=== PATIENT | female | born 1955 | race Caucasian/White ===

== ENCOUNTER 2019-02-27 10:35 | Outpatient (CLI) | payer OTHER, SELFPAY ==
[2019-02-27 12:43] LABS: Abs Immature Grans 0.01 k/cumm (0.0-0.09); Absolute Basophil Count 0.01 k/cumm (0.0-0.2); Absolute Eosinophil Count 0.08 k/cumm (0.0-0.7); Absolute Lymphocyte Count 0.96 k/cumm (1.2-3.4); Absolute Monocyte Count 0.37 k/cumm (0.11-0.7); Absolute Neutrophil Count 3.32 k/cumm (1.2-6.7); Basophils % 0.2; Eosinophils % 1.7; HCT 41.4 % (36.0-46.0); HGB 13.6 g/dL (12.0-15.5); Immature Grans % 0.2; Lymphocytes % 20.2; Mean Corp. HGB Concentration 32.9 g/dL (32.0-36.0); Mean Corpuscular Hemoglobin 29.6 pg (27.0-33.0); Mean Corpuscular Volume 90.2 fL (80-95); Mean Platelet Volume 11.6 fL (8.0-11.0); Monocytes % 7.8; Neutrophils % 69.9; Platelet Count 221 x1000/uL (130-400); RBC 4.59 m/cumm (4.00-5.20); White Blood Cell Count 4.75 k/cumm (4.4-10.8)
[2019-02-27 12:56] LABS: ALT 27 U/L (12-78); AST 13 U/L (15-37); Albumin 3.8 g/dL (3.4-5.0); Alkaline Phosphatase 88 U/L (46-116); BUN 13 mg/dL (7-18); Bilirubin, Total 0.4 mg/dL (0.2-1.0); CREATININE 0.69 mg/dL (0.55-1.02); Calcium 9.5 mg/dL (8.5-10.1); Chloride 104 mmol/L (98-107); Cholesterol 298 mg/dL (50-200); Glucose 111 mg/dL (70-100); HDL Cholesterol 44 mg/dL (40-60); LDL CHOLESTEROL 207 mg/dL (<100); Sodium 141 mmol/L (136-145); Total Protein 7.2 g/dL (6.4-8.2); Triglyceride 233 mg/dL (30-150)
== END 2019-02-27 10:55 ==
PROVIDERS: PCP Internal Medicine; Visit Provider Internal Medicine
DX: I10 Essential (primary) hypertension (principal); E78.5 Hyperlipidemia, unspecified; R50.9 Fever, unspecified
CPT/HCPCS: 36415; 80053; 80061; 83721; 85025

== ENCOUNTER 2019-04-04 13:19 | Outpatient (REF) | payer MEDICARE, OTHER, SELFPAY ==
[2019-04-04 14:09] LABS: Bilirubin Negative (Negative); Blood Negative (Negative); Clarity Clear; Glucose Negative (Negative); Ketones 15 mg/dL (Negative); Leukocyte Esterase Negative (Negative); Nitrite Negative (Negative); Specific Gravity 1.025 (1.005-1.025); Urobilinogen 0.2 EU/dL (Up TO 0.2)
== END 2019-04-04 13:39 ==
LOC: LBN 13:19
PROVIDERS: PCP Internal Medicine
DX: M54.9 Dorsalgia, unspecified (principal)
CPT/HCPCS: 81003

== ENCOUNTER 2020-05-01 12:06 | Outpatient (REF) | payer MEDICARE, OTHER, SELFPAY ==
[2020-05-01 13:29] LABS: ALT 24 U/L (14-59); AST 14 U/L (15-37); Albumin 3.8 g/dL (3.4-5.0); Alkaline Phosphatase 91 U/L (46-116); Anion Gap 11.8 mmol/L (3-11); BUN 15 mg/dL (7-18); Bilirubin, Total 0.5 mg/dL (0.2-1.0); CO2 23.2 mmol/L (21.0-32.0); Calcium 9.3 mg/dL (8.5-10.1); Chloride 103 mmol/L (98-107); Glucose 101 mg/dL (74-106); Sodium 138 mmol/L (136-145); Total Protein 6.9 g/dL (6.4-8.2)
== END 2020-05-01 12:26 ==
LOC: LBN 12:06
PROVIDERS: PCP Nurse Practitioner; Visit Provider Nurse Practitioner Family
DX: K76.89 Other specified diseases of liver (principal)
CPT/HCPCS: 80053

== ENCOUNTER 2021-02-06 02:55 | Outpatient (CLI) | payer MEDICARE, OTHER, SELFPAY ==
[2021-02-06 12:35] LABS: Hemoglobin A1C 5.7 % (<5.7)
[2021-02-06 13:02] LABS: CREATININE 0.8 mg/dL (0.55-1.02); Cholesterol 133 mg/dL (<200); Potassium 3.5 mmol/L (3.5-5.1); Triglyceride 124 mg/dL (<150)
[2021-02-06 13:13] LABS: Calculated LDL 60 mg/dL (<100); HDL Cholesterol 49 mg/dL (40-60)
== END 2021-02-06 02:56 | disposition home or self-care (01) ==
LOC: LOS 02:55
PROVIDERS: PCP Nurse Practitioner; Visit Provider Nurse Practitioner
DX: I10 Essential (primary) hypertension (principal); R73.03 Prediabetes; K76.89 Other specified diseases of liver
CPT/HCPCS: 36415; 80061; 82565; 83036; 84132

== ENCOUNTER 2021-05-18 08:28 | Emergency (ER) | payer MEDICARE, OTHER, SELFPAY ==
[2021-05-18 08:35] VITALS: BP 164/80; PULSE 91; RESP 17; TEMP 36.2; O2SAT 99
[2021-05-18 08:39] LABS: Bilirubin Negative (Negative); Blood Large (Negative); Clarity Sl Cloudy (Clear); Glucose Negative (Negative); Ketones Negative (Negative); Leukocyte Esterase Moderate (Negative); Nitrite Negative (Negative); Specific Gravity 1.015 (1.005-1.025); Urobilinogen 0.2 EU/dL (Up TO 0.2); pH 6.5 (5-8)
[2021-05-18 08:46] LABS: WBC >50 HPF (0-5)
[2021-05-18 08:47] LABS: C & S Indicated? Yes; RBC >50 HPF (0-2)
[2021-05-18 09:18] LABS: Abs Immature Grans 0.03 10^3/uL (0.0-0.06); Absolute Basophil Count 0.03 10^3/uL (0.0-0.2); Absolute Eosinophil Count 0.04 10^3/uL (0.0-0.7); Absolute Lymphocyte Count 0.91 10^3/uL (1.2-3.4); Absolute Monocyte Count 0.76 10^3/uL (0.1-0.8); Absolute Neutrophil Count 8.44 10^3/uL (1.2-6.7); Basophils % 0.3; Eosinophils % 0.4; HCT 41.6 % (36.0-46.0); HGB 13.9 g/dL (11.2-15.7); Immature Grans % 0.3; Lymphocytes % 8.9; MCH 30.3 pg (27.0-33.0); MCHC 33.4 % (32.0-36.0); MCV 90.6 fL (80-95); MPV 11.5 fL (8.0-11.0); Monocytes % 7.4; Neutrophils % 82.7; Nucleated RBC 0 %; Platelet Count 180 10^3/uL (130-400); RBC 4.59 10^6/uL (3.93-5.22); RDW 12.2 % (11.7-14.6); RDW-SD 40.1 fL; WBC 10.21 10^3/uL (4.4-10.8)
--- NOTE | 2021-05-18 09:18 | ED.GENADUL_ITS ---
Discharge Plan Disposition Patient Disposition: HOME Condition: Stable Discharge Details Clinical Impression: Hypokalemia, Loose stools, Acute UTI Primary Care Provider: Ludy Gonzalez ED Provider: Live Mcmahon Home Meds and New Rx's Prescriptions: New cephalexin 500 mg tablet 500 mg PO BID Qty: 13 RF: 0 Continued tamoxifen 20 mg tablet 20 mg PO DAILY RF: 0 aspirin 81 mg tablet,delayed release (DR/EC) 81 mg PO DAILY RF: 0 atorvastatin 40 mg tablet 40 mg PO QPM Qty: 90 RF: 3 atenolol 25 mg tablet 25 mg PO DAILY Qty: 90 RF: 3 hydrochlorothiazide 12.5 mg tablet 12.5 mg PO DAILY Qty: 90 RF: 4 Systane Gel 10 ML drops,gel 1 drp Ophthalmic BID MDD BID RF: 0 naproxen sodium [Aleve] 220 MG capsule 220 mg PO DAILY PRN RF: 0 cholecalciferol (vitamin D3) 1,000 UNIT capsule 2,000 unit PO DAILY RF: 0 Discharge Instructions Instructions: Urinary Tract Infection in Women (ED), Hypokalemia (ED) Additional Instructions: Please take full course of antibiotic as prescribed. Please follow-up with your primary care physician, call tomorrow. Return to the emerge department immediately for any worsening or new concerning symptoms. Referrals: Ludy Gonzalez, MEDICAL SECRETARY [Primary Care Provider] - Medical Decision Making 925 --66-year-old female with prior history of GERD, [place], breast cancer, here with hematuria and increased urinary frequency since incomplete emptying since last night. Patient also having intermittent and more frequent abdominal discomfort with associated loose stool over the past few months. Concern for urinary tract infection. Urinalysis reviewed and is consistent with urinary tract infection. Plan to initiate treatment with antibiotic. Regarding intermittent abdominal discomfort and loose stool times months, consider liver disease and electrolyte abnormalities. Consider infectious diarrhea. Will check labs and send stool culture. --Labs reviewed and hypokalemia noted. I will give potassium 40 mEq IV and 20 mEq p.o. and plan to recheck labs. --Plan to proceed to CT the abdomen pelvis to assess for acute surgical pathology and metastatic disease. 1332 --CT the abdomen pelvis was interpreted by radiology: Findings suspicious for cystitis, fatty liver, tiny pericardial effusion. Chronic appearing benign compression of T10. Patient currently receiving potassium. I will initiate treatment with Keflex for UTI. 1500 --repeat labs reviewed and potassium now normalized. I will discharge the patient on Keflex with plan for outpatient follow-up with PCP. Unfortunately patient was not able to provide stool specimen here. I will order outpatient so that outpatient work-up can be expedited. HPI General Mode of arrival: ambulatory . Date/Time Provider Initiated Documentation: 05/18/21 08:30 . Limitations to Documentation: no limitations . Information obtained by: patient . HPI Narrative: 66-year-old female with history of GERD, hypertension, chronic nonalcoholic liver disease, hyperlipidemia, pelvic organ prolapse, DCIS right breast, on tamoxifen, here with chief complaint of urinary symptoms. Patient notes hematuria, increased urinary frequency and sense of incomplete emptying since last night. She has mild dysuria. No associated flank pain or fever. No recent urinary tract infection over the past 12 months. Patient also notes that over the past few months she has had intermittent abdominal discomfort and associated loose stools. She states discomfort initially was every couple weeks and now seems more frequent. She recently had a loose bowel movement with undigested food. She notes decreased appetite. No recent antibiotics, travel, or undercooked/exotic food. She has no associated melena or bright red blood per rectum. No nausea or vomiting. Related Data Home Medications Medication Instructions Recorded Confirmed Systane Gel 1 drp OPHTHALMIC BID MDD BID 11/14/13 05/18/21 naproxen sodium [Aleve] 220 mg PO DAILY PRN 10/28/16 05/18/21 cholecalciferol (vitamin D3) 2,000 unit PO DAILY 01/13/17 05/18/21 atorvastatin 40 mg tablet 40 mg PO QPM #90 tab 06/04/20 05/18/21 aspirin 81 mg tablet,delayed 81 mg PO DAILY 07/12/20 05/18/21 release tamoxifen 20 mg tablet 20 mg PO DAILY 07/12/20 05/18/21 atenolol 25 mg tablet 25 mg PO DAILY #90 tab-cap 02/13/21 05/18/21 hydrochlorothiazide 12.5 mg tablet 12.5 mg PO DAILY #90 tab 02/28/21 05/18/21 cephalexin 500 mg PO BID #13 tab 05/18/21 Previous Rx's Medication Instructions Recorded atorvastatin 40 mg tablet 40 mg PO QPM #90 tab 06/04/20 atenolol 25 mg tablet 25 mg PO DAILY #90 tab-cap 02/13/21 hydrochlorothiazide 12.5 mg tablet 12.5 mg PO DAILY #90 tab 02/28/21 cephalexin 500 mg PO BID #13 tab 05/18/21 Allergies Allergy/AdvReac Type Severity Reaction Status Date / Time glycerin [From Replens] AdvReac burning & Verified 04/29/21 15:46 rash mineral oil [From Replens] AdvReac Burning & Verified 04/29/21 15:46 Rash polycarbophil [From Replens] AdvReac burning & Verified 04/29/21 15:46 RAsh General Stated Complaint: GenMedical JIMMY: 3 Review of Systems All systems reviewed & are unremarkable except as noted in HPI and below Constitutional Constitutional: Denies fever(s) Gastrointestinal Gastrointestinal: Reports as per HPI Genitourinary Genitourinary: Reports as per HPI Hematologic/Lymphatic Comments: Chronic mild swelling lower extremities bilaterally unchanged [facility] Medical History Anxiety and depression Essential hypertension 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 Hyperlipidemia [place] (nonalcoholic steatohepatitis) Phyllodes tumor of breast Tumor of breast [facility]; left breast phylloides tumor 02/2015 Surgical History Abdominal hysterectomy Bilateral salpingectomy with oophorectomy Colonoscopy - [facility] (08/11/17) Dilation and curettage EGD - [facility] (08/11/17) Endometrial Ablation History of cataract removal with insertion of prosthetic lens Family History Mother No problems noted. Father , 67 Asthma Sister Hyperlipidemia Hypertension Brother , 60 No problems noted. Son Cancer Brother , 59 Heart disease Asthma Daughter No problems noted. Daughter No problems noted. Social History Smoking/Tobacco Use Status: Never Smoking risk assessment performed?: Yes Alcohol Intake: current Alcohol Intake frequency: holidays/special occasions only Alcohol type: beer and wine Drug use: Never Substance use type: does not use Caregiver/Support person: No Household members: spouse and other Details: Ho-. uses W/C. 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 Pets and animals: No Sexually active: No Do you think of yourself as: straight/heterosexual Current gender identity: female What is your relationship status?: How often do you talk on the phone with friends or family?: decline to answer How often do you get together with friends or relatives?: decline to answer How often do you attend roman catholic or tenriism services?: decline to answer Do you belong to any clubs or organized social groups?: decline to answer Panel score (0-1 are the most socially isolated patients): 1 What type of physical activity do you participate in: decline to answer Duration: decline to answer Frequency: decline to answer Aruna/Yarsani: No preference Special aruna needs: No Seatbelt use: always Helmet use: No Drive intox or ride w/intox emergency medical technician/driver: No Do you feel safe at home: Yes Do you feel safe in your relationship?: Yes Additional Social history: 2019 Children 40yo, 38yo. Live nearby. Exam Const General: cooperative and no acute distress [facility] Head: normocephalic and atraumatic Mouth: moist mucous membranes Eyes Conjunctivae: normal conjunctivae Sclera: normal sclerae Neck Neck: trachea midline and supple Resp Auscultation: clear to auscultation bilaterally, no rales, no rhonchi and no wheezes Cardio Jugular venous pressure: no JVD Rate: regular rate and not tachycardic Rhythm: regular rhythm GI Palpation: soft, not firm, no guarding, no masses, not rigid, tender in the epigastrum, No ascites and other (fullness on palpation epigastric area) Auscultation: normal bowel sounds Skin General skin exam: no rashes or lesions noted Neuro General: patient alert, patient awake, patient oriented x3 and tone normal Extrem General: no edema Psych Appearance: grossly normal Mental Status: mental status grossly normal Course Vital Signs Vital signs: Vital Signs Temperature 36.2 C L 05/18/21 08:35 Pulse 91 H 05/18/21 08:35 Respiratory Rate 17 05/18/21 08:35 Blood Pressure 164/80 H 05/18/21 08:35 Pulse Oximetry 99 05/18/21 08:35 Temperature 36.2 C L 05/18/21 08:35 Temperature Source Temporal Artery Scan 05/18/21 08:35 Pulse 91 H 05/18/21 08:35 Respiratory Rate 17 05/18/21 08:35 Respiratory Effort Non-Labored 05/18/21 08:51 Respiratory Depth Normal 05/18/21 08:51 Respiratory Pattern Normal 05/18/21 08:51 Blood Pressure 164/80 H 05/18/21 08:35 Blood Pressure Position Sitting 05/18/21 08:35 Pulse Oximetry 99 05/18/21 08:35 Oxygen Delivery Method Room Air 05/18/21 08:35 Oxygen Flow Rate 0 05/18/21 08:35 Lab/Test Results Lab/Test Results: 05/18/21 08:30 Urine - Reflex from Ua Urine Culture - Pending Laboratory Tests Range/Units 05/18/21 08:30 Urine Color (Yellow) [place] Urine Clarity (Clear) Sl Cloudy Urine pH (5-8) 6.5 Ur Specific [place] (1.005-1.025) 1.015 Urine Protein (Negative) mg/dL 100 H Urine Ketones (Negative) mg/dL Negative Urine Blood (Negative) Large H Urine Nitrite (Negative) Negative Urine Bilirubin (Negative) Negative Urine Urobilinogen (Up TO 0.2) EU/dL 0.2 Ur Leukocyte Esterase (Negative) Moderate H Urine RBC (0-2) HPF >50 H Urine WBC (0-5) HPF >50 H Ur Epithelial Cells Not Applicable Urine Crystals Not Applicable Urine Bacteria Not Applicable Urine Mucus Not Applicable Ur Culture Indicated? Yes Urine Glucose (Negative) mg/dL Negative
[2021-05-18] MEDS: Lactated Ringers 500 ML IV (09:22)
[2021-05-18] MEDS: Normal Saline Flush 10 ML SYR IVP ×2 (09:23→11:21)
[2021-05-18 09:31] LABS: ALT 25 U/L (14-59); AST 10 U/L (15-37); Albumin 3.5 g/dL (3.4-5.0); Alkaline Phosphatase 66 U/L (46-116); BUN 10 mg/dL (7-18); Bilirubin, Total 0.7 mg/dL (0.2-1.0); CREATININE 0.8 mg/dL (0.55-1.02); Calcium 8.6 mg/dL (8.5-10.1); Chloride 104 mmol/L (98-107); Glucose 136 mg/dL (74-106); Lipase 100 U/L (73-393); Sodium 142 mmol/L (136-145); Total Protein 7.1 g/dL (6.4-8.2)
[2021-05-18 09:36] LABS: Potassium 2.7 mmol/L (3.5-5.1)
[2021-05-18] MEDS: Potassium Chloride 20 MEQ TABCR PO (09:40)
[2021-05-18] MEDS: POTASSIUM CHLORIDE 20 MEQ/100 ML BAG 50 MEQ IVPB ×2 (09:41→12:10)
[2021-05-18 09:51] VITALS: BP 142/63; PULSE 72; RESP 16; TEMP 36.1; O2SAT 98
--- NOTE | 2021-05-18 10:45 | DI.CT_ITS ---
Exam(s) CT ABDOMEN PELVIS W EXAM: CT ABDOMEN PELVIS W CLINICAL HISTORY: abd pain, diarrhea, fullness upper abd TECHNIQUE: Imaging Protocol: Axial computed tomography images with coronal and sagittal reformatted images were created and reviewed CONTRAST MATERIAL: Intravenous: Omnipaque 350 Contrast volume:100 mL Oral: No COMPARISON: No exams were available for comparison FINDINGS: ABDOMEN: Lung Bases: Normal where visualized. There is a tiny pericardial effusion. Liver: There is diffuse fatty infiltration of the liver. No measurable mass. Portal, Superior Mesenteric, and Splenic Veins: Unremarkable. Gallbladder and Biliary Tract: No radiodense calculus or dilation. Pancreas: Normal density, no abnormal calcifications or inflammatory process. Spleen: Normal. Adrenals: No masses seen. Kidneys: Normal size, contour and axis. No radiodense stones or obstructive uropathy. No masses seen. Abdominal Aorta: Abdominal portion non-dilated. Mild atherosclerosis. Bowel: No obstruction or bowel wall thickening. Appendix is unremarkable. Peritoneal Cavity: No ascites, collection or mesenteric inflammatory response. No free air. Lymph Nodes: Within normal limits. Bones: Within normal limits for the patient's age. There is an old anterior compression deformity of the T10 vertebral body. Soft Tissues: Unremarkable. PELVIS: Bladder: There is diffuse thickening of the wall of the urinary bladder. An inflammatory infectious process should be considered. Reproductive Organs: The patient is status post hysterectomy. Lymph Nodes: Within normal limits. Bones: Within normal limits for the patient's age. IMPRESSION: 1. Diffuse thickening of the wall of the urinary bladder suspicious for an inflammatory infectious cy stitis. 2. Small pericardial effusion. RADIATION DOSE DELIVERED: 936.43mGy.cm Total DLP DATA REPOSITORY: All CT scans at this facility are submitted to the National Radiology Data Registry (NRDR) Dose Index Registry (DIR) with the [employer] (ACR). RADIATION OPTIMIZATION: All CT scans at this facility use at least one of these dose optimization te chniques: automated exposure control; mA and/or kV adjustment per patient size (includes targeted exa ms where dose is matched to clinical indication); or iterative reconstruction.
[2021-05-18] MEDS: Omnipaque 350 MG/ML 100 ML BTL IV (11:20)
[2021-05-18] MEDS: Normal Saline - Diluent 50 ML VIAL IV (11:20)
[2021-05-18 11:39] VITALS: BP 138/50; PULSE 71; RESP 16; TEMP 36.1; O2SAT 98
[2021-05-18 13:05] VITALS: BP 132/57; PULSE 63; RESP 18; TEMP 36.1; O2SAT 97
--- NOTE | 2021-05-18 13:23 | DI.VRAD_ITS ---
PROCEDURE INFORMATION: Exam: CT Abdomen And Pelvis With Contrast Exam date and time: 05/18/2021 10:48 AM Age: 66 years old Clinical indication: Other: Abd pain, diarrhea, fullness upper abd TECHNIQUE: Imaging protocol: Computed tomography of the abdomen and pelvis with contrast. Radiation optimization: All CT scans at this facility use at least one of these dose optimization techniques: automated exposure control; mA and/or kV adjustment per patient size (includes targeted exams where dose is matched to clinical indication); or iterative reconstruction. Contrast material: OMNIPAQUE 350; Contrast volume: 100 ml; Contrast route: INTRAVENOUS (IV); COMPARISON: SC ABDOMEN ULTRASOUND (P) 07/27/2017 4:06 PM FINDINGS: Heart: Tiny pericardial effusion. Liver: Diffuse fatty infiltration of the liver. Gallbladder and bile ducts: Normal. No calcified stones. No ductal dilation. Pancreas: Normal. No ductal dilation. Spleen: Normal. No splenomegaly. Adrenal glands: Normal. No mass. Kidneys and ureters: Normal. No hydronephrosis. Stomach and bowel: Unremarkable. No obstruction. No mucosal thickening. Appendix: No evidence of appendicitis. Intraperitoneal space: Unremarkable. No free air. No significant fluid collection. Vasculature: Unremarkable. No abdominal aortic aneurysm. Lymph nodes: Unremarkable. No enlarged lymph nodes. Urinary bladder: Diffuse thickening of the wall the urinary bladder which is irregular and edematous, suspicious for cystitis. Reproductive: Hysterectomy. Bones/joints: The bones are demineralized. Chronic appearing benign compression of T10. Degenerative arthritis in the spine and pelvis. Soft tissues: Unremarkable. IMPRESSION: 1. Findings suspicious for cystitis 2. Fatty liver. 3. Tiny pericardial effusion. Dictated and Authenticated by: Kathia Kay MD. Ordering:FINA Mancini MD
[2021-05-18] MEDS: Cephalexin 500 MG CAP PO (13:31)
[2021-05-18 14:21] VITALS: BP 148/66; PULSE 70; RESP 14; TEMP 36.3; O2SAT 99
[2021-05-18 14:45] LABS: Anion Gap 8.2 mmol/L (3-11); BUN 8 mg/dL (7-18); CO2 28.8 mmol/L (21.0-32.0); CREATININE 0.8 mg/dL (0.55-1.02); Calcium 8.5 mg/dL (8.5-10.1); Chloride 105 mmol/L (98-107); Glucose 109 mg/dL (74-106); Potassium 3.7 mmol/L (3.5-5.1); Sodium 142 mmol/L (136-145)
[2021-05-18 15:05] VITALS: BP 114/86; PULSE 74; RESP 16; TEMP 36.5; O2SAT 98
== END 2021-05-18 15:17 | disposition home or self-care (01) ==
PROVIDERS: Physician Assistant; Emergency Provider Student in an Organized Health Care Education/Training Program; PCP Nurse Practitioner
DX: E87.6 Hypokalemia (principal); R19.7 Diarrhea, unspecified; N39.0 Urinary tract infection, site not specified; B96.89 Other specified bacterial agents as the cause of diseases classified elsewhere
CPT/HCPCS: 36415; 80048; 80053; 83690; 96361; 96365; 96366; 99285; 74177; 81003; 81015; 85025; 87086; 99284; J3480; J3490

== ENCOUNTER 2021-05-19 11:27 | Outpatient (REF) | payer MEDICARE, OTHER, SELFPAY ==
[2021-05-20 15:14] LABS: Campylobacter PCR Negative (Negative); Salmonella PCR Negative (Negative); Shiga Toxin PCR Negative (Negative); Shigella/Enteroinvasive Ecoli Negative (Negative)
== END 2021-05-19 11:28 | disposition home or self-care (01) ==
LOC: LBN 11:27
PROVIDERS: PCP Nurse Practitioner; Visit Provider Student in an Organized Health Care Education/Training Program
DX: R19.7 Diarrhea, unspecified (principal)
CPT/HCPCS: 87493; 87505

== ENCOUNTER 2021-06-05 04:04 | Outpatient (CLI) | payer MEDICARE, OTHER, SELFPAY ==
[2021-06-05 12:28] LABS: Potassium 3.5 mmol/L (3.5-5.1)
== END 2021-06-05 04:05 | disposition home or self-care (01) ==
LOC: LOS 04:04
PROVIDERS: PCP Nurse Practitioner; Visit Provider Nurse Practitioner
DX: E87.6 Hypokalemia (principal)
CPT/HCPCS: 36415; 84132

== ENCOUNTER → 2021-06-10 07:57 | Outpatient (BNVA) | payer MEDICARE, OTHER, SELFPAY | PROVIDERS: PCP Nurse Practitioner; Referring Provider Nurse Practitioner; Visit Provider Surgery | DX: K58.0 Irritable bowel syndrome with diarrhea (principal); I10 Essential (primary) hypertension; R11.0 Nausea; F41.9 Anxiety disorder, unspecified; F32.9 Major depressive disorder, single episode, unspecified | CPT/HCPCS: 99213; 99214 ==

== ENCOUNTER 2021-06-16 02:08 | Outpatient (CLI) | payer MEDICARE, OTHER, SELFPAY ==
[2021-06-16 12:59] LABS: Source Nasal/Nares
[2021-06-16 19:26] LABS: COVID-19 PCR Negative (Negative)
== END 2021-06-16 02:09 | disposition home or self-care (01) ==
LOC: LBO 02:08
PROVIDERS: PCP Nurse Practitioner; Visit Provider Surgery
DX: Z20.822 Contact with and (suspected) exposure to COVID-19 (principal); Z01.818 Encounter for other preprocedural examination
CPT/HCPCS: 87635

== ENCOUNTER 2021-06-18 08:37 | Day surgery (SDC) | payer MEDICARE, OTHER, SELFPAY ==
--- NOTE | 2021-06-18 06:55 | W.PM.ENDDOP ---
Date of service: 06/18/21 Time of Service: 11:06 Endoscopy Report DATE OF PROCEDURE: 06/18/21 PRE-OP DIAGNOSIS: Nausea POST-OP DIAGNOSIS: other (gastritis and esophagitis) PROCEDURE: EGD with biopsies SURGEON: Deann Dominguez ANESTHESIA TYPE: General:No Airway (ASA 2/ rBet Foster, ALFONSO) ESTIMATED BLOOD LOSS: 5 PATHOLOGY: other (antrum bx, GE junction bx) COMPLICATIONS: None DISPOSITION: same day INDICATIONS: The patient's biggest complaint at this time is abdominal bloating and nausea as well as loss of appetite. This has been going on for about a month. She takes Nexium on a daily basis and Carafate for about 4 5 days. The Carafate did not improve her symptoms so she stopped it. She did have an upper endoscopy in 2017 which revealed some inflammation. On exam her abdomen is soft nontender. Again wonder if this is anxiety driven but as she does have a history of gastritis and reflux we will go ahead with an upper endoscopy and biopsies just to make sure that she does not have H. pylori or ulcers. Risks, benefits and complications have been reviewed. Complications include but are not limited to bleeding, pain, perforation, sore throat, aspiration, and adverse reaction to the medications. Questions were entertained and answered to their satisfaction and they wished to proceed. No guarantees were given or implied. Proceed with EGD under sedation FINDINGS: moderate inflammation of the stomach mild inflammation of the ge junction PROCEDURE DESCRIPTION: After informed consent was obtained the patient was take to the procedure room and placed in a supine position. Monitors were applied and a time out was done. The patients name, date of , procedure type, allergies to medications and metal in their body was reviewed. A bite block was placed and the patient was sedated. Once sedated and comfortable the gastroscope was advanced through the oropharynx which was grossly normal into the esophagus. The proximal and mid-esophagus were normal. In the distal esophagus there was mild noted. The scope was advanced into the stomach and through the pylorus into the 3rd portion of the duodenum. The duodenum was noted to be normal. The scope was retracted back into the stomach. There was moderate inflammation noted and biopsies were done to rule out H. pylori. There were no ulcers. The scope was retroflexed. The cardia and fundus were noted to be normal. There was no hiatal hernia noted. The scope was retracted back into the esophagus and biopsies were done of the GE junction to rule out Herrera's. The Z line was regular. The GE junction was at 35 cm. The scope was removed and the patient was woken up and taken back to [facility] in stable condition.
--- NOTE | 2021-06-18 06:55 | W.PM.DSUDISC ---
Discharge Plan Disposition Patient Disposition: HOME Condition: Good Discharge Details Reason For Visit: EGD Attending Provider: Deann Dominguez Primary Care Provider: Ludy Gonzalez Home Meds and New Rx's Prescriptions: New esomeprazole magnesium [Nexium] 40 mg capsule,delayed release(DR/EC) 40 mg PO DAILY Qty: 30 RF: 2 sucralfate [Carafate] 1 gram tablet 1 g PO TID 14 Days Qty: 42 RF: 0 Continued tamoxifen 20 mg tablet 20 mg PO DAILY RF: 0 aspirin 81 mg tablet,delayed release (DR/EC) 81 mg PO DAILY RF: 0 atenolol 25 mg tablet 25 mg PO DAILY Qty: 90 RF: 3 hydrochlorothiazide 12.5 mg tablet 12.5 mg PO DAILY Qty: 90 RF: 4 Systane Gel 10 ML drops,gel 1 drp Ophthalmic BID MDD BID RF: 0 naproxen sodium [Aleve] 220 MG capsule 220 mg PO DAILY PRN RF: 0 cholecalciferol (vitamin D3) 1,000 UNIT capsule 2,000 unit PO DAILY RF: 0 atorvastatin 40 mg tablet 40 mg PO QPM Qty: 90 RF: 3 citalopram 10 mg tablet 10 mg PO DAILY Qty: 30 RF: 0 Discontinued esomeprazole magnesium [Nexium 24HR] 20 mg capsule,delayed release(DR/EC) 20 mg PO DAILY Qty: 30 RF: 0 Discharge Instructions Instructions: Diet for Stomach Ulcers and Gastritis (ED), Esophagitis (DC), Gastritis (DC) Additional Instructions: Findings: inflammation of stomach and esophagus Follow up: I will call with results Please call if you develop: fevers >101.5 Nausea or Vomiting Abdominal pain that is not transient Rectal bleeding that is more then a tbsp A hard abdomen and inability to pass gas DAY SURGERY UNIT POST ENDOSCOPY INSTRUCTIONS Instructions for everyone who is given Anesthesia: For your safety, please do the following for the next 24 Hours: a. Do not drive or operate dangerous equipment b. Do not drink alcohol beverages or use any recreational drugs for the first 24 hours or while taking pain medications. The medications in your body may have a reaction that can be dangerous. c. Do not make any important decisions or sign any important papers 1. Generally there are no restrictions on your activity after a day or so has gone by, but you may feel a bit fatigued for a few days. 2. After you arrive home you may have a light meal and return to a normal diet as you can tolerate it without feeling sick to your stomach. 3. After surgery, you may feel pain or discomfort. This should be only transient, but if it persists please contact your doctor. 4. If there are any questions regarding the findings of your procedure, please feel free to contact your doctor. 6. If you are unable to contact your doctor with a problem, contact the hospital at [phone]. 7. Continue all your regular medications unless directed otherwise. I understand the above instructions and have no questions. Signature of Patient or Responsible Adult Escort Date/Time Name of Responsible Adult Escort Signature of Nurse Date/Time Activity:: Activity as Tolerated Diet:: low acid Discharge Orders Discharge Orders: Discharge Order (Routine); Ordered 06/18/21 Ordered By: Deann Dominguez
[2021-06-18 08:54] VITALS: BP 170/90; PULSE 57; RESP 16; TEMP 36.3; O2SAT 98
[2021-06-18] MEDS: Lactated Ringers 1,000 ML 80 ML IV (09:14)
--- NOTE | 2021-06-18 10:34 | W.ANESPRE ---
General Info Date of Service Date Performed: 06/18/21 Height: 5 ft 4 in Weight: 73.7 kg Body Mass Index (BMI): 27.8 Surgical Procedure: Operation Date: 06/18/21 09:35 Proposed Procedures Side Surgeon p Gastroscopy Deann Dominguez MD Meds Allergies and Home Medications Allergies Allergy/AdvReac Type Severity Reaction Status Date / Time glycerin [From Replens] AdvReac burning & Verified 06/18/21 08:59 rash mineral oil [From Replens] AdvReac Burning & Verified 06/18/21 08:59 Rash polycarbophil [From Replens] AdvReac burning & Verified 06/18/21 08:59 RAsh Home Medication Medication Instructions Recorded Systane Gel 1 drp OPHTHALMIC BID MDD BID 11/14/13 naproxen sodium [Aleve] 220 mg PO DAILY PRN 10/28/16 cholecalciferol (vitamin D3) 2,000 unit PO DAILY 01/13/17 aspirin 81 mg tablet,delayed 81 mg PO DAILY 07/12/20 release tamoxifen 20 mg tablet 20 mg PO DAILY 07/12/20 atenolol 25 mg tablet 25 mg PO DAILY #90 tab-cap 02/13/21 hydrochlorothiazide 12.5 mg tablet 12.5 mg PO DAILY #90 tab 02/28/21 atorvastatin 40 mg tablet 40 mg PO QPM #90 tab 05/19/21 esomeprazole magnesium 20 mg 20 mg PO DAILY #30 cap 05/27/21 capsule,delayed release citalopram 10 mg tablet 10 mg PO DAILY #30 tab 06/11/21 Current Visit Medications: Current Medications Generic Name Dose Route Start Last Admin Trade Name Theoq PRN Reason Stop Dose Admin Hyoscyamine Sulfate 0.125 mg 06/18/21 06:56 Hyoscyamine 0.125 Mg Sl/Oral/Chew SL DIRECTED PRN Ringer's Solution 1,000 mls @ 80 mls/hr 06/18/21 06:00 06/18/21 09:14 IV 07/17/21 23:59 80 mls/hr INFUSION LU Administration IV Miscellaneous Supplies 1 each 06/18/21 06:00 Iv Access IV 07/17/21 23:59 DIRECTED LU Ondansetron HCl 4 mg 06/18/21 06:56 Ondansetron 4 Mg/2 Ml Vial IVP Q4H PRN PRN Nausea / Vomiting Sodium Chloride 0 ml 06/18/21 06:00 Normal Saline Flush 10 Ml Syr IV 07/17/21 23:59 PRN PRN Sodium Chloride 0 ml 06/18/21 06:00 Normal Saline 10 Ml Vial IJ 07/17/21 23:59 DIRECTED PRN Sterile Water 0 ml 06/18/21 06:00 Water,Injection,Sterile 10 Ml Vial IJ 07/17/21 23:59 DIRECTED PRN PFSH Active Problems Active Problems: Problem Status Onset Code Anxiety and depression 04/01/16 F41.9, F32.9 Chronic nonalcoholic liver disease 11/27/13 K76.9 Essential hypertension I10 Gastroesophageal reflux disease without esophagitis 09/20/17 K21.9 Herpes simplex type 2 infection 01/28/16 B00.9 Hyperlipidemia 11/27/13 E78.5 Increased BMI R63.8 Breast cancer 11/27/13 C50.919 Pelvic organ prolapse quantification stage 2 cystocele N81.10 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 Hyperlipidemia [place] (nonalcoholic steatohepatitis) [place]yllodes tumor of breast [place] [facility] [place]yll[place] Surgical History Surgical History (Updated 06/18/21 @ 08:59 by Taya Yoon RN) Abdominal hysterectomy Bilateral salpingectomy with oophorectomy Colonoscopy - MAC (08/11/17) Dilation and curettage EGD - MAC (08/11/17) Endometrial Ablation History of cataract removal with insertion of prosthetic lens b/l w/ lenses Tobacco Smoking/Tobacco Use Status: Never Passive smoking exposure: Yes Alcohol Alcohol Intake: current Alcohol intake frequency: holidays/special occasions only Alcohol type: beer and wine Substance Use Substance use: Never Substance use type: does not use Vital Signs and Lab Results Vital Signs Most Recent Vital Signs in EMR: Most Recent Vital Signs Temp Pulse Resp BP Pulse Ox 36.3 C L 57 L 16 170/90 H 98 06/18/21 08:54 08/25/21 08:54 06/18/21 08:54 06/18/21 08:54 06/18/21 08:54 Lab Results Blood Type / Crossmatch: No Data to Display Complete Blood Count: No Data to Display Complete Metabolic Panel: Potassium Level 3.5 mmol/L (3.5-5.1) 06/05/21 08:35 06/05/21 Liver Function Panel: No Data to Display Coagulation Panel: No Data to Display Cardiac Panel: No Data to Display Arterial Blood Gas: No Data to Display Venous Blood Gas: No Data to Display Pancreas Panel: No Data to Display Thyroid Panel: No Data to Display Infectious Disease: Coronavirus (COVID-19)(PCR) Negative (Negative) 06/16/21 09:17 06/16/21 Coronavirus 2019 Source Nasal/Nares 06/16/21 09:17 06/16/21 Blood Cultures: No Data to Display Toxicology Panel: No Data to Display Anesthesia Assessment and Plan Anesthesia History Personal History: No History of Anesthesia Complications Family History: No Family History of Anesthesia Complications Exercise Tolerance Exercise Tolerance: Metabolic Equivalents>4 Pertinent Negatives Pertinent Negatives: No Symptoms of GERD, No Major Cardiovascular Symptoms or Complaints, No Major Pulmonary Symptoms or Complaints and No History of CVA/TIA Cardiac & Pulmonary Exam Cardiac Exam: Normal S1/S2 Heart Sounds Pulmonary Exam: Clear Bilateral Breath Sounds Airway Exam Known Difficult Airway: No Mallampati Class: 2 Mouth Opening: Normal (> 3cm) Thyromental Distance: Greater than 3 cm Neck Range of Motion: Full ROM Neck Circumference: Normal Teeth Condition: Normal Dentition and Removable Dentures/Plates Upper ASA Classification ASA Score: ASA 2 Emergency Case?: No NPO Status NPO Status: NPO Clears >2 hours, Solids >8 hours Anesthesia Plan Resuscitation Status: Full Code Anesthesia Technique: General Anesthesia Airway Planned: Natural Airway Monitors Used: Standard Monitors
[2021-06-18 10:37] VITALS: BMI 27.8
--- NOTE | 2021-06-18 10:54 | STOM_PTH ---
PATIENT: Cha Alvarez LOC: [facility] U#:[id number] AGE/SX: 66/F ROOM: RE06/18/[address]: Deann Dominguez MD : 1955 BED: DIS: 06/18/2021 SPEC #: [id number] RECD: 06/18/21 12:27 STATUS: MASOUD REShanice #: [id number] HENRY: 06/18/21 10:[address]: Deann Dominguez DEPT: Surgical Specimen RECD BY: Alejandrina Slaughter ENTERED: 06/18/21 12:28 SP TYPE: STOMACH OTHR DR: Ludy Gonzalez, PhD MEDICAL RECORDS COORDINATOR Tissues: 1 - STOMACH BIOPSY 2 - ESOPHAGUS BIOPSY Procedures: GROSS AND MICRO LEVEL 4 Comments: [id number]
[2021-06-18 11:06] VITALS: BP 140/74; PULSE 59; RESP 16; TEMP 36.7; O2SAT 98
--- NOTE | 2021-06-18 11:09 | W.ANESPOSTOP ---
Postoperative Evaluation Date, Time and Location Date Performed: 06/18/21 Time Performed: 11:09 Patient Location: Day Surgery Unit Vital Signs Most Recent Imported Vital Signs: Most Recent Vital Signs Temp Pulse Resp BP Pulse Ox 36.3 C L 57 L 16 170/90 H 98 06/18/21 08:54 06/18/21 08:54 06/18/21 08:54 06/18/21 08:54 06/18/21 08:54 Most Recent Manually Entered Vital Signs: Adult Blood Pressure: 140/74 Heart Rate: 60 Respirations: 14 Oxygen Saturation (%): 98 Temperature (C): 36.3 C Pain Score (0-10 Scale): 0 Pain Score Most Recent Pain Score: Most Recent Pain Score Pain Level 0 06/18/21 08:54 Assessment Mental Status: Awake (Alert & Oriented to Patient Baseline) Airway and Respiratory Function: Patent airway with normal (patient baseline) respiratory exam Cardiovascular Function: Hemodynamically Stable Hydration Status: Adequately Hydrated Nausea & Vomiting: No Nausea or Vomiting Pain: Pt. Denies Any Pain Peripheral Nerve Block: Patient did not receive a nerve block
[2021-06-18 11:10] VITALS: BP 140/74; PULSE 60; RESP 14; TEMPC 36.3; O2SAT 98
[2021-06-18 11:31] VITALS: BP 152/68; PULSE 60; RESP 16; TEMP 36.6; O2SAT 98
== END 2021-06-18 11:37 | disposition home or self-care (01) ==
LOC: SUR 08:38
PROVIDERS: PCP Nurse Practitioner; Visit Provider Surgery
PROC: 0DJ68ZZ Inspection of Stomach, Via Natural or Artificial Opening Endoscopic (ICD-10-PCS; CPT 43235; principal; 2021-06-18 09:30)
DX: K29.70 Gastritis, unspecified, without bleeding (principal); K20.90 Esophagitis, unspecified without bleeding
CPT/HCPCS: 43239; 88305

== ENCOUNTER → 2021-07-04 08:55 | Outpatient (BNVA) | payer MEDICARE, OTHER, SELFPAY | PROVIDERS: PCP Nurse Practitioner; Referring Provider Nurse Practitioner; Visit Provider Surgery | DX: Z48.815 Encounter for surgical aftercare following surgery on the digestive system (principal); K29.00 Acute gastritis without bleeding | CPT/HCPCS: 99212 ==

== ENCOUNTER 2022-06-12 17:59 | Outpatient (REF) | payer MEDICARE, OTHER, SELFPAY ==
[2022-06-12 12:53] LABS: ESR < 1 mm/hr (0-30)
[2022-06-12 13:07] LABS: Hemoglobin A1C 5.8 % (<5.7)
[2022-06-12 13:11] LABS: Anion Gap 10.1 mmol/L (3-11); BUN 20 mg/dL (7-18); CO2 25.9 mmol/L (21.0-32.0); CREATININE 0.7 mg/dL (0.55-1.02); Calcium 8.9 mg/dL (8.5-10.1); Calculated LDL 81 mg/dL (<100); Chloride 103 mmol/L (98-107); Cholesterol 163 mg/dL (<200); Glucose 111 mg/dL (74-106); HDL Cholesterol 55 mg/dL (40-60); Potassium 4.2 mmol/L (3.5-5.1); Sodium 139 mmol/L (136-145); Triglyceride 138 mg/dL (<150)
[2022-06-12 13:24] LABS: TSH 2.73 uIU/mL (0.36-3.74); Vitamin B12 431 pg/mL (193-986)
== END 2022-06-12 18:00 | disposition home or self-care (01) ==
LOC: NCHCN 17:59
PROVIDERS: PCP Nurse Practitioner; Visit Provider Nurse Practitioner Family
DX: K76.9 Liver disease, unspecified (principal); R73.03 Prediabetes; I10 Essential (primary) hypertension; M25.50 Pain in unspecified joint; G62.9 Polyneuropathy, unspecified; Z79.899 Other long term (current) drug therapy
CPT/HCPCS: 80048; 80061; 85652; 82607; 83036; 84443

== ENCOUNTER 2023-03-19 01:45 | Outpatient (CLI) | payer MEDICARE, OTHER, SELFPAY ==
--- NOTE | 2023-03-18 15:21 | W.NUTCONSULT ---
Date of service: 03/18/23 Time of Service: 15:21 Nutritional Consult ASSESSMENT: Mona was referred for management of GI symptoms. Mona reports that about 3 months ago she started to have Gi distress (diarrhea), bloating and pain in association with meals. Historically, she has followed a low gluten and low lactose diet and reports that she has had GI issues in past that resolved when following gluten free diet. This is no longer the case. Mona reports she often eats only once per day and has severe anxiety about her health and inability to eat. Has has dropped 7 lbs in last couple months and feels drained and tired. 5'4 170 lbs BMI: 30 In last 24 hours, she has only been able to sleep 2-4 hours, and eaten a bowl of cereal and a bottle of vitamin water. If she tries to force herself to eat, she gags. She is a breast cancer survivor and is also treated for HTN and HLD. Her quality of life has been severely affected by her GI symptoms. Mona would benefit from a sleep aid to help her sleep at least 6 hours per night. This, in itself may reduce her anxiety. She was taken off an SSRI when she was started on tamoxifin a couple of years back due to into interactions. Most likely, needs to be medically treated for her anxiety with a treatment that does not interfer with tamoxifin. Does have constipation. NUTRITIONAL DIAGNOSIS: Inadequate intake of macronutrients secondary to GI upset and IBS symptoms. INTERVENTION: Mona educated on how to follow a low fod map diet to help with GI upset, to start Food and symptom log Metamucil and Magnesium oxide to aid with daily BM. Mona to follow up with PCP re: a sleep aid and anti anxiety treatment that would not interfer with tamoxifin treatment. MONITORING AND EVALUATION: follow up 03/25/23 at 2 pm. Time Spent in Nutritional Counseling and Treatment: 30
[2023-03-19 13:52] LABS: Abs Immature Grans 0.01 10^3/uL (0.0-0.06); Absolute Basophil Count 0.03 10^3/uL (0.0-0.2); Absolute Eosinophil Count 0.13 10^3/uL (0.0-0.7); Absolute Monocyte Count 0.52 10^3/uL (0.1-0.8); Absolute Neutrophil Count 3.27 10^3/uL (1.2-6.7); Basophils % 0.6; Eosinophils % 2.4; HGB 12.6 g/dL (11.2-15.7); Immature Grans % 0.2; Lymphocytes % 26.1; MCH 31.5 pg (27.0-33.0); MCHC 34.1 % (32.0-36.0); MCV 93 fL (80-95); MPV 11.9 fL (8.0-11.0); Monocytes % 9.7; Platelet Count 169 10^3/uL (130-400); RDW 12.4 % (11.7-14.6); RDW-SD 42.5 fL; WBC 5.36 10^3/uL (4.4-10.8)
[2023-03-19 14:26] LABS: ALT 27 U/L (14-59); AST 12 U/L (15-37); Albumin 3.7 g/dL (3.4-5.0); Alkaline Phosphatase 60 U/L (46-116); Anion Gap 6.2 mmol/L (3-11); BUN 20 mg/dL (7-18); Bilirubin, Total 0.7 mg/dL (0.2-1.0); CO2 29.8 mmol/L (21.0-32.0); CREATININE 1.2 mg/dL (0.55-1.02); Calcium 8.8 mg/dL (8.5-10.1); Chloride 104 mmol/L (98-107); Estimated GFR 49.31 (mL/min/1.73m2); Glucose 121 mg/dL (74-106); Lipase 43 U/L (16-77); Potassium 3.2 mmol/L (3.5-5.1); Sodium 140 mmol/L (136-145); Total Protein 6.9 g/dL (6.4-8.2)
[2023-03-19 14:28] LABS: Hemoglobin A1C 5.7 % (<5.7)
[2023-03-19 14:39] LABS: Calculated LDL 52 mg/dL (<100); Cholesterol 132 mg/dL (<200); HDL Cholesterol 52 mg/dL (40-60); Triglyceride 143 mg/dL (<150)
== END 2023-03-19 01:46 | disposition home or self-care (01) ==
LOC: LBO 01:45
PROVIDERS: PCP Nurse Practitioner Adult Health; Visit Provider Nurse Practitioner Adult Health
DX: E78.5 Hyperlipidemia, unspecified (principal); I10 Essential (primary) hypertension; K76.0 Fatty (change of) liver, not elsewhere classified; R73.03 Prediabetes; Z85.3 Personal history of malignant neoplasm of breast
CPT/HCPCS: 36415; 80053; 80061; 83690; 83036; 85025

== ENCOUNTER 2023-03-28 07:32 | Emergency (ER) | payer MEDICARE, OTHER, SELFPAY ==
[2023-03-28 07:42] VITALS: BP 141/74; PULSE 72; RESP 16; TEMP 36.9; O2SAT 99
--- NOTE | 2023-03-28 08:12 | ED.GENADUL_ITS ---
Discharge Plan Disposition Patient Disposition: Home Discharge Details Clinical Impression: Abdominal pain, Acute UTI, Dysuria Primary Care Provider: Skye Arriaga ED Provider: Linwood Santos Home Meds and New Rx's Prescriptions: New cephalexin 500 mg capsule 500 mg PO QID 5 Days Qty: 20 0RF Continued tamoxifen 20 mg tablet 20 mg PO DAILY atenolol 25 mg tablet 25 mg PO DAILY Qty: 90 4RF omeprazole 40 mg capsule,delayed release(DR/EC) 40 mg PO DAILY Qty: 30 2RF naproxen sodium [Aleve] 220 MG capsule 220 mg PO DAILY PRN cholecalciferol (vitamin D3) 1,000 UNIT capsule 2,000 unit PO DAILY Systane Gel 0.4-0.3 % drops,gel 1 drp Ophthalmic BID MDD BID PRN Rx Instructions: BOTH EYES hydrochlorothiazide 12.5 mg tablet 12.5 mg PO DAILY Qty: 90 3RF atorvastatin 40 mg tablet 40 mg PO QPM Qty: 90 3RF Discharge Instructions Instructions: Dysuria (ED) Additional Instructions: You were seen in the emergency department for abdominal pain and painful urination. We performed labs that were unremarkable but your urine testing was consistent with an infection. We gave you your first dose antibiotics here and you should start your antibiotics tomorrow. He can take [id number] Pyridium per box directions for any bladder spasm type symptoms you are having but realize this medication may turn your urine orange which is normal and expected. Take the antibiotics for the full course even if you start to feel better. You had a CAT scan of your abdomen pelvis that were unremarkable. You were incidentally found to have some sclerosis of your left hip bone which is likely benign but you should follow-up with your primary care doctor about this finding consider additional testing. Return for any worsening symptoms. Referrals: Skye Arriaga, GOVERNMENT MINISTER [Primary Care Provider] - 1 week Discharge Data Discharge Physician: Linwood Santos Medical Decision Making Labs unremarkable. Urinalysis is consistent with UTI and given 2 g of ceftriaxone here. No signs of sepsis and patient tolerating p.o. without difficulty so okay for outpatient treatment of UTI. Prescription sent for antibiotics. CT abdomen pelvis is unremarkable and consistent with UTI. Incidentally found bone island and I informed patient of this on her left iliac acetabular margin and told to follow-up with her doctor and she expresses understanding. She otherwise feels well. Will discharge with return precautions. Medical Records Medical records reviewed: Yes I reviewed the patient's medical records. Imaging Data Radiologic Study: Attestation: I personally reviewed and interpreted this imaging study as follows: Imaging: CT Scan (abdomen and pelvis) Radiologist's impression: IMPRESSION: 1. ? No radiopaque obstructive urinary calculus or overt hydronephrosis is appreciated. There is however some subtle hydroureter along with stranding of both ureteral margins left more so than right. In addition there is overall incomplete distention of the bladder as well as bladder wall thickening and perivesicular stranding. This could be seen with processes including previous passed or non radiopaque calculi although the appearance is more suggestive of overall cystitis and urinary tract inflammation. Consider urinalysis as well as cystoscopy given the persistence. 2. ? There is a focal area of sclerosis about the left iliac acetabular margin which could represent bone island although does appears slightly larger in the interval. Consider nuclear bone scan. Lab Data Lab results reviewed: Yes I reviewed the patient's lab results. Labs: Labs grossly unremarkable. Patient does have urinalysis consistent with UTI. Urine culture added on. HPI General Mode of arrival: ambulatory . Date/Time Provider Initiated Documentation: 03/28/23 08:03 . Limitations to Documentation: no limitations . Information obtained by: patient . HPI Narrative: 68-year-old female with history of breast cancer in remission is now presenting with urinary symptoms. For the last 2 days has had urinary urgency and frequency. Says that she has some burning on urination. No fevers or chills. No abdominal pain. Nausea but no vomiting. No diarrhea or constipation or any black or bloody stools. Denies any other complaints presently. Related Data Home Medications Medication Instructions Recorded Confirmed naproxen sodium 220 mg capsule 220 mg PO DAILY PRN 10/28/16 03/28/23 (Aleve) cholecalciferol (vitamin D3) 25 2,000 unit PO DAILY 01/13/17 03/28/23 mcg (1,000 unit) capsule tamoxifen 20 mg tablet 20 mg PO DAILY 07/12/20 03/28/23 omeprazole 40 mg capsule,delayed 40 mg PO DAILY #30 caps 06/20/21 03/28/23 release peg 400-propylene glycol 0.4 %-0.3 1 drp ophthalmic (eye) BID PRN 06/26/21 03/28/23 % eye gel drops (Systane Gel) atorvastatin 40 mg tablet 40 mg PO QPM #90 tabs 05/19/22 03/28/23 hydrochlorothiazide 12.5 mg tablet 12.5 mg PO DAILY #90 tabs 05/19/22 03/28/23 atenolol 25 mg tablet 25 mg PO DAILY #90 tab-caps 09/02/22 03/28/23 cephalexin 500 mg capsule 500 mg PO QID 5 days #20 caps 03/28/23 Previous Rx's Medication Instructions Recorded omeprazole 40 mg capsule,delayed 40 mg PO DAILY #30 caps 06/20/21 release atorvastatin 40 mg tablet 40 mg PO QPM #90 tabs 05/19/22 hydrochlorothiazide 12.5 mg tablet 12.5 mg PO DAILY #90 tabs 05/19/22 atenolol 25 mg tablet 25 mg PO DAILY #90 tab-caps 09/02/22 cephalexin 500 mg capsule 500 mg PO QID 5 days #20 caps 03/28/23 Allergies Allergy/AdvReac Type Severity Reaction Status Date / Time glycerin [From Replens] AdvReac burning & Verified 03/28/23 07:46 rash mineral oil [From Replens] AdvReac Burning & Verified 03/28/23 07:46 Rash polycarbophil [From Replens] AdvReac burning & Verified 03/28/23 07:46 RAsh General Stated Complaint: Urinary JIMMY: 4 Review of Systems Constitutional Constitutional: Denies chills, Denies fever(s) and Denies headache(s) Eyes Eyes: Denies change in vision ENT Ears, Nose, Mouth, and Throat: Denies headache(s) and Denies odynophagia Cardiovascular Cardiovascular: Denies chest pain and Denies dyspnea Respiratory Respiratory: Denies dyspnea Gastrointestinal Gastrointestinal: Denies abdominal pain, Denies diarrhea, Denies nausea, Denies odynophagia and Denies vomiting Genitourinary Genitourinary: Denies abnormal vaginal bleeding, Reports dysuria, Denies pelvic pain, Reports urinary urgency and Denies vaginal discharge Musculoskeletal Musculoskeletal: Denies myalgias Integumentary/Breasts Skin/Breast: Denies changing lesions Neurologic Neurologic: Denies behavioral changes and Denies headache(s) Psychiatric Psychiatric: Denies behavioral changes Endocrine Endocrine: Denies heat intolerance Hematologic/Lymphatic Hematologic/Lymphatic: Denies lymphadenopathy PFSH All Active Problems (Updated 03/28/23 @ 11:29 by Linwood Santos MD) Abdominal pain (Acute) Acute UTI (Acute) Dysuria (Acute) Shingles outbreak (Acute) History of cancer of right breast (Acute) 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; 2020: DCIS Obesity (Chronic) Nonalcoholic fatty liver disease without nonalcoholic steatohepatitis ([place]) (Acute) Non-celiac gluten sensitivity (Acute) Essential hypertension (Acute) Gastroesophageal reflux disease without esophagitis (Acute 09/20/17) Hyperlipidemia (Acute 11/27/13) Pelvic organ prolapse quantification stage 2 cystocele (Chronic) Pessary trialed in 03/2022 but did not tolerate Prediabetes (Acute) IBS (irritable bowel syndrome) (Chronic ~2016) 06/2021-Improved with gluten-free diet Medical History Anxiety and depression (04/01/16) Ductal carcinoma in [place]IS) [place]~04/22/20[place] [facility] 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 [place] phylloides [place] Surgical History Bilateral salpingectomy with oophorectomy Colonoscopy - MAC (08/11/17) Dilation and curettage EGD - MAC (08/11/17) Endometrial Ablation History of cataract removal with insertion of prosthetic lens b/l w/ lenses History of esophagogastroduodenoscopy (EGD) (~05/2021) S/P breast lumpectomy (~09/1997) [place] [facility] [place] post [place]rectomy Family History Mother No problems noted. Father , 67 Asthma Sister Hyperlipidemia Hypertension Hypothyroid Brother , 60 No problems noted. Son Cancer Brother , 59 Heart disease Asthma Daughter No problems noted. Daughter No problems noted. 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 [email or web address] Pets and animals: No Sexually active: No Do you think of yourself as: straight/heterosexual Current gender identity: female What is your relationship status?: How often do you talk on the phone with friends or family?: three or more times per week How often do you get together with friends or relatives?: twice per week Do you belong to any clubs or organized social groups?: no Panel score (0-1 are the most socially isolated patients): 2 What type of physical activity do you participate in: walking Duration: < 15 minutes/day Frequency: daily Aruna/Jainism: None Special aruna needs: No Seatbelt use: always Helmet use: No Drive intox or ride w/intox subway train driver: No Do you feel safe at home: Yes Do you feel safe in your relationship?: Yes Exam Const General: cooperative Nutritional Appearance: average body habitus Orientation: alert, awake and oriented x3 HENMT Head: normal to inspection Ears: external ears normal Mouth: moist mucous membranes Eyes Pupils: PERRL EOM: EOM intact bilaterally and No nystagmus Neck Neck: full ROM and no tracheal deviation Chest Chest: normal inspection of the chest Resp Auscultation: clear to auscultation bilaterally Cardio Rate: regular rate Rhythm: regular rhythm GI Inspection: normal to inspection Palpation: soft, no guarding, not rigid and nontender Back/Spine/Pelvis Back: No no CVA tenderness Thoracic/Lumbar Spine: thoracic and lumbar spine normal to inspection Skin General skin exam: no rashes or lesions noted Neuro General: patient alert, patient awake and patient oriented x3 Cranial Nerves: CN's II-XI intact bilaterally, PERRL and no nystagmus Cognition: normal cognition Motor: muscle tone normal throughout and strength 5/5 throughout Sensory Exam: no sensory deficits noted Extrem General: normal to inspection Course Reevaluation(s) Initial Evaluation: 68-year-old female with history of breast cancer in remission, hypertension, hyperlipidemia is now presenting with urinary symptoms. Suspect this represents cystitis. Will get urinalysis to further evaluate. Given her age we will check a CBC to look for anemia or any neutropenia or significant leukocytosis. We will check comprehensive metabolic panel primarily to look for severe electrolyte derangements or any signs of renal dysfunction. No abdominal pain or tenderness to suggest intra-abdominal abscess at this time. Has 1 partner for many years and not sexually active so no concerns for STIs. We will give some IV fluids as she says she is having trouble giving a urine sample. Will await initial testing and reevaluate. Vital Signs Vital signs: Vital Signs Temperature 36.9 C 03/28/23 07:42 Pulse 72 03/28/23 07:42 Respiratory Rate 16 03/28/23 07:42 Blood Pressure 141/74 H 03/28/23 07:42 Pulse Oximetry 99 03/28/23 07:42 Temperature 36.9 C 03/28/23 07:42 Temperature Source Oral 03/28/23 07:42 Pulse 72 03/28/23 07:42 Respiratory Rate 16 03/28/23 07:42 Blood Pressure 141/74 H 03/28/23 07:42 Blood Pressure Position Sitting 03/28/23 07:42 Pulse Oximetry 99 03/28/23 07:42 Oxygen Delivery Method Room Air 03/28/23 07:42 Oxygen Flow Rate 0 03/28/23 07:42
[2023-03-28] MEDS: Normal Saline 1,000 ML 1000 ML IV (08:46)
[2023-03-28 08:52] LABS: ALT 24 U/L (14-59); AST 16 U/L (15-37); Albumin 3.5 g/dL (3.4-5.0); Alkaline Phosphatase 63 U/L (46-116); Anion Gap 8.6 mmol/L (3-11); BUN 17 mg/dL (7-18); Bilirubin, Total 0.7 mg/dL (0.2-1.0); CO2 27.4 mmol/L (21.0-32.0); CREATININE 1.2 mg/dL (0.55-1.02); Calcium 8.5 mg/dL (8.5-10.1); Chloride 102 mmol/L (98-107); Glucose 129 mg/dL (74-106); Potassium 3.2 mmol/L (3.5-5.1); Sodium 138 mmol/L (136-145); Total Protein 7.2 g/dL (6.4-8.2)
[2023-03-28 09:00] LABS: Abs Immature Grans 0.04 10^3/uL (0.0-0.06); Absolute Basophil Count 0.03 10^3/uL (0.0-0.2); Absolute Lymphocyte Count 0.89 10^3/uL (1.2-3.4); Absolute Monocyte Count 0.81 10^3/uL (0.1-0.8); Absolute Neutrophil Count 8.94 10^3/uL (1.2-6.7); Basophils % 0.3; Eosinophils % 0.9; HCT 36.5 % (36.0-46.0); HGB 12.5 g/dL (11.2-15.7); Immature Grans % 0.4; Lymphocytes % 8.2; MCH 31.2 pg (27.0-33.0); MCHC 34.2 % (32.0-36.0); MCV 91 fL (80-95); MPV 11.8 fL (8.0-11.0); Monocytes % 7.5; Neutrophils % 82.7; Platelet Count 156 10^3/uL (130-400); RBC 4.01 10^6/uL (3.93-5.22); RDW 12.2 % (11.7-14.6); RDW-SD 40.4 fL; WBC 10.81 10^3/uL (4.4-10.8)
--- NOTE | 2023-03-28 09:30 | DI.CT_ITS ---
Exam(s) CT ABDOMEN PELVIS W EXAM: CT ABDOMEN PELVIS W CLINICAL HISTORY: llq abdominal pain TECHNIQUE: Imaging Protocol: Axial computed tomography images with coronal and sagittal reformatted images were created and reviewed CONTRAST MATERIAL: Intravenous: Omnipaque 350 Contrast volume:100 mL Oral: No COMPARISON: CT CT ABDOMEN PELVIS W from 05/18/2021 FINDINGS: ABDOMEN: Lung Bases: There is a small stable pericardial effusion. Small hiatal hernia. Liver: Normal density. No measurable mass. Portal, Superior Mesenteric, and Splenic Veins: Unremarkable. Gallbladder and Biliary Tract: No radiodense calculus or dilation. Pancreas: Normal density, no abnormal calcifications or inflammatory process. Spleen: Normal. Adrenals: No masses seen. Kidneys: Normal size, contour and axis. No radiodense stones or obstructive uropathy. No masses seen. Abdominal Aorta: Abdominal portion non-dilated. Atherosclerosis. Bowel: No obstruction or bowel wall thickening. Appendix is unremarkable. There are few diverticula i n the colon but no evidence of acute diverticulitis. Peritoneal Cavity: No ascites, collection or mesenteric inflammatory response. No free air. Lymph Nodes: Within normal limits. Bones: Within normal limits for the patient's age. There is a stable T10 compression deformity. Soft Tissues: Unremarkable. PELVIS: Bladder: There is diffuse thickening of the wall and mild enhancement in the urinary bladder. Reproductive Organs: Status post hysterectomy. Lymph Nodes: Within normal limits. Bones: Within normal limits for the patient's age. There is a round sclerotic focus in the left acet abulum which has shown slight increase in size compared to the prior examination. No other suspiciou s sclerotic foci are seen. IMPRESSION: 1. There is thickening of the wall and mild enhancement of the urinary bladder. The bladder is under distended which may account for the findings however infectious or inflammatory cystitis should be co nsidered. Please correlate clinically. 2. Slight increased size of round sclerotic focus in the left acetabulum. This may represent a bone island. Bone scan may be considered for further evaluation. RADIATION DOSE DELIVERED: 1,106.09mGy.cm Total DLP DATA REPOSITORY: All CT scans at this facility are submitted to the National Radiology Data Registry (NRDR) Dose Index Registry (DIR) with the [employer] (ACR). RADIATION OPTIMIZATION: All CT scans at this facility use at least one of these dose optimization te chniques: automated exposure control; mA and/or kV adjustment per patient size (includes targeted exa ms where dose is matched to clinical indication); or iterative reconstruction.
[2023-03-28 09:57] LABS: Bilirubin Negative (Negative); Blood Large (Negative); Clarity Sl Cloudy (Clear); Glucose Negative (Negative); Ketones Negative (Negative); Leukocyte Esterase Moderate (Negative); Nitrite Negative (Negative); Urobilinogen 0.2 mg/dL (Up to 0.2); pH 5.5 (5-8)
[2023-03-28] MEDS: Normal Saline - Diluent 50 ML VIAL IJ (09:57)
[2023-03-28] MEDS: Omnipaque 350 MG/ML 100 ML BTL IJ (09:57)
[2023-03-28] MEDS: Normal Saline Flush 10 ML SYR IVP (09:58)
[2023-03-28 10:07] LABS: Bacteria Moderate HPF (Negative); C & S Indicated? C&S Done As Ordered; Casts Negative LPF (Negative); Crystals Negative HPF (Negative); Epithelial Cells Many HPF (Negative); Mucus Negative (Negative); WBC >50 HPF (0-5)
[2023-03-28] MEDS: Phenazopyridine 200 MG TAB PO (10:39)
[2023-03-28] MEDS: cefTRIAXone 2 GM/50 ML BAG IVPB (10:39)
--- NOTE | 2023-03-28 11:09 | DI.VRAD_ITS ---
PROCEDURE INFORMATION: Exam: CT Abdomen And Pelvis With Contrast Exam date and time: 03/28/2023 9:58 AM Age: 68 years old Clinical indication: Other: Llq abdominal pain.No history of trauma or recent surgery is provided. TECHNIQUE: Imaging protocol: Computed tomography of the abdomen and pelvis with contrast. 1128image(s) are provided. Radiation optimization: All CT scans at this facility use at least one of these dose optimization techniques: automated exposure control; mA and/or kV adjustment per patient size (includes targeted exams where dose is matched to clinical indication); or iterative reconstruction. Contrast material: OMNIPAQUE 350; Contrast volume: 100 ml; Contrast route: INTRAVENOUS (IV); Other technique: Axial images are available with sagittal and coronal reconstruction views. Automated dose exposure control is utilized. The DLP is 1106.0. COMPARISON: CT ABDOMEN PELVIS W 05/18/2021 11:23 AM FINDINGS: Lungs: No lobar consolidation is appreciated. There is some subsegmental atelectasis versus post inflammatory scarring demonstrated more so on the left. Heart: There is some trace pericardial recess fluid be physiologic versus developmental including cystic related on the right similar overall. Diaphragm: There is slight asymmetric right hemidiaphragm elevation. Liver: There appears to be some hepatic steatosis. There is some transient enhancement or hemangioma type averaging of the right liver lobe similar location. Gallbladder and bile ducts: There appears to be some gallbladder cap fold averaging with slight thickening and averaging of the hepatic margin similar. Pancreas: No interval pancreatic ductal dilatation or calcification is currently appreciated. Spleen: Unremarkable. Adrenal glands: There is some slight adrenal hypertrophy similar. Kidneys and ureters: There is relatively homogeneous renal parenchymal enhancement with no radiopaque obstructive calculus or overt hydronephrosis currently appreciated. There is some slight hydroureter along with stranding along both ureters although slightly more pronounced on the left. There is also question of increased density within. Stomach and bowel: Some aspects of the colon are undistended. This may also be peristaltic related.There is abundant stool present limiting mucosal detail evaluation.The bowel gas pattern appears nonobstructive. There is a small sliding-type hiatal hernia demonstrated with slight gastroesophageal fold thickening. There is some chronic diverticulosis demonstrated overall. Appendix: No evidence of appendicitis. Intraperitoneal space: No free air or free organized fluid collections are appreciated. Vasculature: No abdominal aortic aneurysmal dilatation or periaortic fluid is appreciated. Lymph nodes: There are subcentimeter predominant para-aortic and mesenteric lymph nodes overall present. There are some borderline lymph nodes about the psoas ureter margins. Urinary bladder: The bladder is incompletely fluid filled for evaluation which may exagerate the wall thickness. This can also be seen with inflammatory sequela. Reproductive: There are hysterectomy changes present. Bones/joints: Osseous alignment is maintained.No interval displaced fracture or dislocation is appreciated.There is slightly decreased bone mineralization overall. There is chronic decreased vertebral height of the T10 level similar overall. There are some developmental appearing bone islands present. There are some areas of sclerosis which do appear increased in the interval for example including of the left iliac acetabular margin. There is some slight spurring with dorsal disc bulging contributing to some lumbar neural foraminal narrowing overall. Soft tissues: No radiopaque foreign body or subcutaneous emphysema is appreciated. There is some asymmetry of the breast tissues although may be positional versus interventional related. Other findings: No other significant interval changes are appreciated. IMPRESSION: 1. No radiopaque obstructive urinary calculus or overt hydronephrosis is appreciated. There is however some subtle hydroureter along with stranding of both ureteral margins left more so than right. In addition there is overall incomplete distention of the bladder as well as bladder wall thickening and perivesicular stranding. This could be seen with processes including previous passed or non radiopaque calculi although the appearance is more suggestive of overall cystitis and urinary tract inflammation. Consider urinalysis as well as cystoscopy given the persistence. 2. There is a focal area of sclerosis about the left iliac acetabular margin which could represent bone island although does appears slightly larger in the interval. Consider nuclear bone scan. Dictated and Authenticated by: Rob Taylor MD. Ordering:KENA Palumbo MD
== END 2023-03-28 12:07 | disposition home or self-care (01) ==
PROVIDERS: Emergency Provider Student in an Organized Health Care Education/Training Program; PCP Nurse Practitioner Adult Health
DX: N39.0 Urinary tract infection, site not specified (principal); R30.0 Dysuria; R10.9 Unspecified abdominal pain
CPT/HCPCS: 36415; 80053; 87077; 96361; 96365; 99285; 74177; 81003; 81015; 85025; 87086; 87186; 99284; J3490

== ENCOUNTER 2023-04-19 16:32 | Outpatient (REF) | payer MEDICARE, OTHER, SELFPAY | END 2023-04-19 16:33 | disposition home or self-care (01) | LOC: NCHCN 16:32 | PROVIDERS: PCP Nurse Practitioner Adult Health; Visit Provider Nurse Practitioner | DX: R30.0 Dysuria (principal) | CPT/HCPCS: 87077; 87086; 87186 ==

== ENCOUNTER 2023-05-04 03:38 | Outpatient (CLI) | payer MEDICARE, OTHER, SELFPAY ==
[2023-05-04 09:47] LABS: Anion Gap 9.8 mmol/L (3-11); BUN 15 mg/dL (7-18); CO2 26.2 mmol/L (21.0-32.0); CREATININE 0.9 mg/dL (0.55-1.02); Calcium 8.2 mg/dL (8.5-10.1); Chloride 105 mmol/L (98-107); Glucose 112 mg/dL (74-106); Potassium 3.3 mmol/L (3.5-5.1); Sodium 141 mmol/L (136-145)
== END 2023-05-04 03:39 | disposition home or self-care (01) ==
LOC: LBO 03:38
PROVIDERS: PCP Nurse Practitioner Adult Health; Visit Provider Nurse Practitioner Adult Health
DX: E87.6 Hypokalemia (principal); I10 Essential (primary) hypertension
CPT/HCPCS: 36415; 80048

== ENCOUNTER 2023-05-21 10:59 | Outpatient (CLI) | payer MEDICARE, OTHER, SELFPAY ==
--- NOTE | 2023-05-21 10:37 | DI.RAD_ITS ---
Exam(s) XR HIP LT AP LAT ONLY EXAM: XR HIP LT AP LAT ONLY CLINICAL HISTORY: S/P ORIF L hip. TECHNIQUE: 2D digital imaging was performed. Two images were obtained. AP and lateral views were ob tained. COMPARISON: CT CT ABDOMEN PELVIS W from 03/28/2023 FINDINGS: BONES: Since the prior CT scan the patient has undergone an intramedullary juan r to transfix the basice rvical left femoral neck fracture. The fracture is transfixed with an intramedullary nail. The orth opedic hardware appears in good position. Alignment of the fracture appears near anatomic. JOINTS: The joint spaces are well maintained. SOFT TISSUE: Normal. IMPRESSION: Status post intramedullary nail of a basicervical left femoral neck fracture. DATA REPOSITORY: RADIATION DOSE DELIVERED:
== END 2023-05-21 11:00 | disposition home or self-care (01) ==
LOC: DIORS 11:00
PROVIDERS: PCP Nurse Practitioner Adult Health; Referring Provider Nurse Practitioner Adult Health; Visit Provider Student in an Organized Health Care Education/Training Program
DX: S72.145D Nondisplaced intertrochanteric fracture of left femur, subsequent encounter for closed fracture with routine healing; X58.XXXD Exposure to other specified factors, subsequent encounter
CPT/HCPCS: 99213; 73502

== ENCOUNTER → 2023-06-03 11:41 | Outpatient (BNVA) | payer MEDICARE, OTHER, SELFPAY | PROVIDERS: PCP Nurse Practitioner Adult Health; Referring Provider Nurse Practitioner Adult Health ==

== ENCOUNTER 2023-06-03 11:51 | Outpatient (CLI) | payer MEDICARE, OTHER, SELFPAY ==
--- NOTE | 2023-06-03 11:30 | DI.RAD_ITS ---
Exam(s) XR HIP LT AP LAT ONLY EXAM: XR HIP LT AP LAT ONLY CLINICAL HISTORY: F/U FX. TECHNIQUE: 2D digital imaging was performed. Two images were obtained. AP and lateral views were ob tained. COMPARISON: CT CT ABDOMEN PELVIS W from 03/28/2023 CR XR HIP LT AP LAT ONLY from 05/21/2023 FINDINGS: BONES: There are stable post operative changes present. No new fracture or dislocation. There is sta ble alignment of the left femoral neck fracture. JOINTS: The joint spaces are well maintained. SOFT TISSUE: Normal. IMPRESSION: Stable postoperative changes. DATA REPOSITORY: RADIATION DOSE DELIVERED:
== END 2023-06-03 11:52 | disposition home or self-care (01) ==
LOC: DIORS 11:51
PROVIDERS: PCP Nurse Practitioner Adult Health; Visit Provider Physician Assistant
DX: S72.145D Nondisplaced intertrochanteric fracture of left femur, subsequent encounter for closed fracture with routine healing; X58.XXXD Exposure to other specified factors, subsequent encounter; R60.0 Localized edema
CPT/HCPCS: 99213; 73502

== ENCOUNTER 2023-06-18 10:20 | Outpatient (CLI) | payer MEDICARE, OTHER, SELFPAY ==
--- NOTE | 2023-06-18 11:21 | DI.RAD_ITS ---
Exam(s) XR HIP LT AP LAT ONLY EXAM: XR HIP LT AP LAT ONLY CLINICAL HISTORY: S/P ORIF L FEMUR. TECHNIQUE: 2D digital imaging was performed. Two images were obtained. AP and lateral views were ob tained. COMPARISON: CR XR HIP LT AP LAT ONLY from 06/03/2023 FINDINGS: BONES: There are stable post operative changes present. No new fracture or dislocation. JOINTS: The joint spaces are well maintained. SOFT TISSUE: Normal. IMPRESSION: Stable postoperative changes. DATA REPOSITORY: RADIATION DOSE DELIVERED:
== END 2023-06-18 10:21 | disposition home or self-care (01) ==
LOC: DIORS 10:20
PROVIDERS: PCP Nurse Practitioner Adult Health; Referring Provider Nurse Practitioner Adult Health; Visit Provider Student in an Organized Health Care Education/Training Program
DX: S72.145D Nondisplaced intertrochanteric fracture of left femur, subsequent encounter for closed fracture with routine healing (principal); X58.XXXD Exposure to other specified factors, subsequent encounter
CPT/HCPCS: 99213; 73502

== ENCOUNTER → 2023-06-21 01:41 | Outpatient (CLI) | payer MEDICARE, OTHER, SELFPAY ==
--- NOTE | 2023-06-21 06:45 | DI.CT_ITS ---
Exam(s) CT LOWER EXTREMITY LT WO EXAM: CT LOWER EXTREMITY LT WO CLINICAL HISTORY: PAIN, CLOSED NONDISPLACED INTERTROCHANTERIC FX LT FEMUR S72.145A. TECHNIQUE: Imaging Protocol: Axial computed tomography images with coronal and sagittal reformatted images were created and reviewed. CONTRAST MATERIAL: Noncontrast COMPARISON: CT CT ABDOMEN PELVIS W from 03/28/2023 CR XR HIP LT AP LAT ONLY from 05/21/2023 CR XR HIP LT AP LAT ONLY from 06/18/2023 FINDINGS: Bones: There has been no change in the alignment of the hardware in the proximal femur. The intertro chanteric fracture remains nondisplaced. There are few tiny comminuted fragments. No suspicious beckie rounding bony lucencies. There is no evidence of a new fracture or dislocation. No cellulitic or osteomyelitic changes are identified. No lytic or sclerotic lesions are identified. Joints: There is no significant joint space narrowing. No significant periarticular spurring. Soft Tissues: Soft tissues small swelling remains present laterally no evidence of hematoma. IMPRESSION: No change in fracture or hardware alignment. No new findings. RADIATION DOSE DELIVERED: 311.8mGy.cm Total DLP DATA REPOSITORY: All CT scans at this facility are submitted to the National Radiology Data Registry (NRDR) Dose Index Registry (DIR) with the [employer] ([employer]). RADIATION OPTIMIZATION: All CT scans at this facility use at least one of these dose optimization te chniques: automated exposure control; mA and/or kV adjustment per patient size (includes targeted exa ms where dose is matched to clinical indication); or iterative reconstruction.
== END ==
PROVIDERS: PCP Nurse Practitioner Adult Health; Visit Provider Student in an Organized Health Care Education/Training Program
DX: S72.145A Nondisplaced intertrochanteric fracture of left femur, initial encounter for closed fracture (principal); X58.XXXA Exposure to other specified factors, initial encounter
CPT/HCPCS: 36415; 80048; 85027; 73700; 83880

== ENCOUNTER 2023-06-21 08:29 | Outpatient (CLI) | payer MEDICARE, OTHER, SELFPAY ==
[2023-06-21 09:24] LABS: HCT 31.8 % (36.0-46.0); HGB 10.1 g/dL (11.2-15.7); MCH 30.2 pg (27.0-33.0); MCHC 31.8 % (32.0-36.0); MCV 95 fL (80-95); MPV 12.3 fL (8.0-11.0); Platelet Count 174 10^3/uL (130-400); RBC 3.34 10^6/uL (3.93-5.22); RDW 13.5 % (11.7-14.6); RDW-SD 47.1 fL; WBC 5.17 10^3/uL (4.4-10.8)
[2023-06-21 09:50] LABS: Anion Gap 9.5 mmol/L (3-11); BUN 19 mg/dL (7-18); CO2 25.5 mmol/L (21.0-32.0); CREATININE 0.8 mg/dL (0.55-1.02); Calcium 8.9 mg/dL (8.5-10.1); Chloride 106 mmol/L (98-107); Estimated GFR 79.71 (mL/min/1.73m2); Glucose 116 mg/dL (74-106); NT-proBNP 496 pg/mL (<300); Sodium 141 mmol/L (136-145)
== END 2023-06-21 08:30 | disposition home or self-care (01) ==
LOC: LBO 08:29
PROVIDERS: PCP Nurse Practitioner Adult Health; Visit Provider Student in an Organized Health Care Education/Training Program
DX: S72.145A Nondisplaced intertrochanteric fracture of left femur, initial encounter for closed fracture (principal)
CPT/HCPCS: 36415; 80048; 85027; 83880

== ENCOUNTER 2023-07-16 12:06 | Outpatient (CLI) | payer MEDICARE, OTHER, SELFPAY ==
--- NOTE | 2023-07-16 12:00 | DI.RAD_ITS ---
Exam(s) XR HIP LT AP LAT ONLY EXAM: XR HIP LT AP LAT ONLY CLINICAL HISTORY: f/u L hip frx. TECHNIQUE: 2D digital imaging was performed of the left hip. Two views were obtained. AP and later al views were obtained. COMPARISON: CR XR HIP LT AP LAT ONLY from 06/18/2023 FINDINGS: BONES: There is again seen an intramedullary juan r and nail transfixing the proximal left femoral fract ure. A component of the for fracture is still visualized particularly on the lateral view. No new f racture is seen. No bony destructive lesion is seen. JOINTS: No dislocation present. SOFT TISSUE: Normal. IMPRESSION: Stable proximal left femoral fracture and orthopedic hardware. DATA REPOSITORY: RADIATION DOSE DELIVERED:
== END 2023-07-16 12:07 | disposition home or self-care (01) ==
LOC: DIORS 12:06
PROVIDERS: PCP Nurse Practitioner Adult Health; Referring Provider Nurse Practitioner Adult Health; Visit Provider Student in an Organized Health Care Education/Training Program
DX: X58.XXXA Exposure to other specified factors, initial encounter (principal); S72.145A Nondisplaced intertrochanteric fracture of left femur, initial encounter for closed fracture
CPT/HCPCS: 99213; 73502

== ENCOUNTER 2023-08-29 08:56 | Emergency (ER) | payer MEDICARE, OTHER, SELFPAY ==
[2023-08-29 09:03] VITALS: BP 168/88; PULSE 91; RESP 18; TEMP 37.2; O2SAT 99
--- NOTE | 2023-08-29 09:30 | DI.CT_ITS ---
Exam(s) CT RENAL COLIC WO EXAM: CT RENAL COLIC WO CLINICAL HISTORY: rt flank pain since yesterday. TECHNIQUE: Imaging Protocol: Axial computed tomography images with coronal and sagittal reformatted images were created and reviewed. COMPARISON: CT CT ABDOMEN PELVIS W from 03/28/2023 FINDINGS: ABDOMEN: Lung Bases: Normal where visualized. There is a small right pericardial cyst again seen. Liver: Normal density. No measurable mass. Gallbladder and biliary tract: No radiodense calculus or biliary ductal dilation. Pancreas: Normal density, no abnormal calcifications or inflammatory process. Spleen: Normal. Kidneys: Normal size, contour and axis.No radiodense stones or obstructive uropathy. No masses seen. Adrenal glands: No mass is seen. Lymph nodes: Within normal limits. Abdominal Aorta: Abdominal portion non-dilated. Atherosclerosis. PELVIS: Bladder:Symmetric distention, no gross wall thickening. Bowel: There are few colonic diverticula but no evidence of acute diverticulitis. No evidence of maria r endicitis, bowel obstruction or bowel wall thickening. Peritoneal cavity: No ascites, collection or mesenteric inflammatory response. No free air. Reproductive organs: Status post hysterectomy. Bones: Within normal limits for the patient's age. There is an intramedullary juan r seen in the proxim al left femur. Old anterior wedging deformities are seen at T10 and T11. Soft Tissues: Within normal limits. IMPRESSION: 1. No evidence of nephrolithiasis or obstructive uropathy. 2. No evidence of appendicitis. 3. No acute abdominal pelvic process. RADIATION DOSE DELIVERED: Total DLP DATA REPOSITORY: All CT scans at this facility are submitted to the National Radiology Data Registry (NRDR) Dose Index Registry (DIR) with the [employer] (ACR). RADIATION OPTIMIZATION: All CT scans at this facility use at least one of these dose optimization te chniques: automated exposure control; mA and/or kV adjustment per patient size (includes targeted exa ms where dose is matched to clinical indication); or iterative reconstruction.
--- NOTE | 2023-08-29 09:31 | W.ED.GENAD ---
Discharge Plan Disposition Patient Disposition: Home Condition: Stable Discharge Details Clinical Impression: Acute right flank pain, Elevated blood pressure reading, Compression fracture of thoracic vertebra Primary Care Provider: Skye Arriaga ED Provider: Live Mcmahon Home Meds and New Rx's Prescriptions: Continued tamoxifen 20 mg tablet 20 mg PO DAILY atenolol 25 mg tablet 25 mg PO DAILY Qty: 90 4RF acetaminophen 500 mg capsule 500 - 1,000 mg PO TID PRN atorvastatin 40 mg tablet 40 mg PO QPM Qty: 90 3RF cholecalciferol (vitamin D3) 1,000 UNIT capsule 2,000 unit PO DAILY Systane Gel 0.4-0.3 % drops,gel 1 drp Ophthalmic BID MDD BID PRN Rx Instructions: BOTH EYES hydrochlorothiazide 12.5 mg tablet 12.5 mg PO DAILY Qty: 90 3RF Hold Instructions: Changed by Provider Discontinued aspirin 81 mg tablet,delayed release (DR/EC) 81 mg PO BID Hold Instructions: Pt Stopped/Never Started Patient Comments: Post-op blood clot prevention Discharge Instructions Instructions: Flank Pain (ED) Additional Instructions: Avoid activities that worsen pain. Please take acetaminophen (tylenol) - 650mg every 6 hours by mouth as needed for pain. Please contact your primary care physician to arrange follow-up. Return to the ER immediately for any worsening or new concerning symptoms. Referrals: Skye Arriaga, [employer] [Primary Care Provider] - Discharge Data Discharge Date/Time-TO BE ENTERED AT DEPARTURE: 08/29/23 13:09 Medical Decision Making 930?- 68-year-old female here with right-sided flank pain that started yesterday, described as sharp and worse with ambulation. Abdominal exam is benign. Suspect ureteral lithiasis. Plan to obtain CT of the abdomen and pelvis to assess for acute surgical pathology. Consider pyelonephritis and will check urinalysis as well as screening labs. -- CT of the abdomen and pelvis interpreted by radiology: No CT findings suggestive of obstructive uropathy. The appendix is well visualized and appears normal. Chronic compression fracture deformity of T10-T12 levels. Small right pericardial cyst. Labs reviewed and nondiagnostic. Normal urinalysis. Unclear etiology for pain at this point. Consider recent passage of stone versus musculoskeletal versus early zoster. Plan for discharge with follow-up with PCP. Usual customary discharge instructions reviewed. Lab Data Lab results reviewed: Yes I reviewed the patient's lab results. Labs: Laboratory Tests Range/Units 08/29/23 08/29/23 09:35 11:26 WBC (4.4-10.8) 10^3/uL 5.25 RBC (3.93-5.22) 10^6/uL 4.10 Hgb (11.2-15.7) g/dL 11.9 Hct (36.0-46.0) % 37.0 MCV (80-95) fL 90 MCH (27.0-33.0) pg 29.0 MCHC (32.0-36.0) % 32.2 RDW (11.7-14.6) % 13.9 Plt Count (130-400) 10^3/uL 143 MPV (8.0-11.0) fL 11.4 H Immature Gran % 0.2 Neutrophils % 82.7 Lymphocytes % 9.1 Monocytes % 7.0 Eosinophils % 0.6 Basophils % 0.4 Nucleated RBC % (0.0-0.3) % 0.0 Absolute Neutrophils (1.2-6.7) 10^3/uL 4.34 Absolute Lymphocytes (1.2-3.4) 10^3/uL 0.48 L Absolute Monocytes (0.1-0.8) 10^3/uL 0.37 Absolute Eosinophils (0.0-0.7) 10^3/uL 0.03 Absolute Basophils (0.0-0.2) 10^3/uL 0.02 Sodium (136-145) mmol/L 137 Potassium (3.5-5.1) mmol/L 3.6 Chloride (98-107) mmol/L 103 Carbon Dioxide (21.0-32.0) mmol/L 25.3 Anion Gap (3-11) mmol/L 8.7 BUN (7-18) mg/dL 16 Creatinine (0.55-1.02) mg/dL 0.9 Est GFR (CKD-EPI 2020) (mL/min/1.73m2) 69.20 Glucose (74-106) mg/dL 126 H Calcium (8.5-10.1) mg/dL 9.1 Total Bilirubin (0.2-1.0) mg/dL 0.7 AST (15-37) U/L 13 L ALT (14-59) U/L 19 Alkaline Phosphatase (46-116) U/L 79 Total Protein (6.4-8.2) g/dL 6.9 Albumin (3.4-5.0) g/dL 3.5 Lipase (16-77) U/L 32 Urine Color (Yellow) Yellow Urine Clarity (Clear) Clear Urine pH (5-8) 7.0 Ur Specific [place] (1.005-1.025) 1.010 Urine Protein (Negative) mg/dL Negative Urine Ketones (Negative) mg/dL Negative Urine Blood (Negative) Negative Urine Nitrite (Negative) Negative Urine Bilirubin (Negative) Negative Urine Urobilinogen (Up to 0.2) mg/dL 0.2 Ur Leukocyte Esterase (Negative) Negative Urine Glucose (Negative) mg/dL Negative HPI General Mode of arrival: ambulatory. Date/Time Provider Initiated Documentation: 08/29/23 09:20. Limitations to Documentation: no limitations. Information obtained by: patient. HPI Narrative: 68-year-old female here with chief complaint of right flank pain. Pain started yesterday morning when she woke up. Pain is described as sharp and worse with ambulation. While lying flat right now she has no pain. She denies associated urinary symptoms. She denies associated nausea, vomiting or fever. No diarrhea. No abnormal vaginal discharge. Patient does note she has had similar pain on the left side in the remote past that resolved on its own. Related Data Home Medications Medication Instructions Recorded Confirmed cholecalciferol (vitamin D3) 25 2,000 unit PO DAILY 01/13/17 08/30/23 mcg (1,000 unit) capsule tamoxifen 20 mg tablet 20 mg PO DAILY 07/12/20 08/30/23 peg 400-propylene glycol 0.4 %-0.3 1 drp ophthalmic (eye) BID PRN 06/26/21 08/30/23 % eye gel drops (Systane Gel) hydrochlorothiazide 12.5 mg tablet 12.5 mg PO DAILY #90 tabs 05/19/22 08/30/23 atenolol 25 mg tablet 25 mg PO DAILY #90 tab-caps 09/02/22 08/30/23 acetaminophen 500 mg capsule 500 - 1,000 mg PO TID PRN 05/18/23 08/30/23 atorvastatin 40 mg tablet 40 mg PO QPM #90 tabs 05/18/23 08/30/23 Previous Rx's Medication Instructions Recorded hydrochlorothiazide 12.5 mg tablet 12.5 mg PO DAILY #90 tabs 05/19/22 atenolol 25 mg tablet 25 mg PO DAILY #90 tab-caps 09/02/22 atorvastatin 40 mg tablet 40 mg PO QPM #90 tabs 05/18/23 Allergies Allergy/AdvReac Type Severity Reaction Status Date / Time glycerin [From Replens] AdvReac burning & Verified 08/30/23 11:08 rash mineral oil [From Replens] AdvReac Burning & Verified 08/30/23 11:08 Rash polycarbophil [From Replens] AdvReac burning & Verified 08/30/23 11:08 RAsh General Stated Complaint: Abd Prob JIMMY: 3 Review of Systems All systems reviewed & are unremarkable except as noted in HPI and below Constitutional Constitutional: Denies fever(s) PFSH All Active Problems (Updated 08/29/23 @ 12:47 by Live Mcmahon MD) Compression fracture of thoracic vertebra (Acute) Elevated blood pressure reading (Acute) Acute right flank pain (Acute) Closed nondisplaced intertrochanteric fracture of left femur (Acute 05/08/23) S/P IM nail fixation ([place]): 05/09/2023 Postoperative anemia (Acute) Anxiety and depression (Chronic 04/01/16) initial occurrence 2016 relapse 2022-->dietary changes improved mood Shingles outbreak (Acute) History of cancer of right breast (Acute) 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; 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 Obesity (Chronic) Nonalcoholic fatty liver disease without nonalcoholic steatohepatitis ([place]) (Acute) Non-celiac gluten sensitivity (Acute) Essential hypertension (Acute) Gastroesophageal reflux disease without esophagitis (Acute 09/20/17) Hyperlipidemia (Acute 11/27/13) Pelvic organ prolapse quantification stage 2 cystocele (Chronic) Pessary trialed in 03/2022 but did not tolerate Prediabetes (Acute) IBS (irritable bowel syndrome) (Chronic ~2016) 06/2021-Improved with gluten-free diet Medical History Abnormal CT scan, pelvis L acetabulum-->fx'ed in April Acute UTI Ductal carcinoma in situ (DCIS) of right breast (~04/22/20) [facility] [place] 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 Status post type I or II open fracture of left hip [facility] Note- Tumor of breast [facility] [place]; left breast phylloides tumor 02/2015 Surgical History Bilateral salpingectomy with oophorectomy Colonoscopy - MAC (08/11/17) Dilation and curettage EGD - MAC (08/11/17) Endometrial Ablation Fracture of left hip requiring operative repair (~05/09/23) History of cataract removal with insertion of prosthetic lens b/l w/ lenses History of esophagogastroduodenoscopy (EGD) (~05/2021) S/P breast lumpectomy (~09/1997) Right, [facility] [place] Status post abdominal hysterectomy Family History Mother No problems noted. Father , 67 Asthma Sister Hyperlipidemia Hypertension Hypothyroid Brother , 60 No problems noted. Son Cancer Brother , 59 Heart disease Asthma Daughter No problems noted. Daughter No problems noted. 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 [employer] Pets and animals: No Sexually active: No Do you think of yourself as: straight/heterosexual Current gender identity: female What is your relationship status?: How often do you talk on the phone with friends or family?: three or more times per week How often do you get together with friends or relatives?: twice per week Do you belong to any clubs or organized social groups?: no Panel score (0-1 are the most socially isolated patients): 2 What type of physical activity do you participate in: walking Duration: < 15 minutes/day Frequency: daily Aruna/Christian: None Special aruna needs: No Seatbelt use: always Helmet use: No Drive intox or ride w/intox driver messenger: No Do you feel safe at home: Yes Do you feel safe in your relationship?: Yes Exam Const General: cooperative and no acute distress HENMT Mouth: moist mucous membranes Eyes Conjunctivae: normal conjunctivae Sclera: normal sclerae Neck Neck: trachea midline and supple Resp Auscultation: clear to auscultation bilaterally, no rales, no rhonchi and no wheezes Cardio Rate: regular rate and not tachycardic Rhythm: regular rhythm GI Inspection: normal to inspection Palpation: soft, not firm, no guarding, no masses, not rigid and nontender Auscultation: normal bowel sounds Back/Spine/Pelvis Back: no CVA tenderness Skin General skin exam: no rashes or lesions noted Neuro General: patient alert, patient awake and tone normal Extrem General: no edema Psych Appearance: grossly normal Mental Status: mental status grossly normal Course Vital Signs Vital signs: Vital Signs Temperature 37.2 C 08/29/23 09:03 Pulse 91 H 08/29/23 09:03 Respiratory Rate 18 08/29/23 09:03 Blood Pressure 168/88 H 08/29/23 09:03 Pulse Oximetry 99 08/29/23 09:03 Temperature 37.2 C 08/29/23 09:03 Temperature Source Skin 08/29/23 09:03 Pulse 91 H 08/29/23 09:03 Respiratory Rate 18 08/29/23 09:03 Respiratory Effort Normal 08/29/23 09:20 Blood Pressure 168/88 H 08/29/23 09:03 Blood Pressure Position Sitting 08/29/23 09:03 Pulse Oximetry 99 08/29/23 09:03 Oxygen Delivery Method Room Air 08/29/23 09:03 Oxygen Flow Rate 0 08/29/23 09:03 Pain Level 5 08/29/23 09:03 PAWSS Have you Been Recently Intoxicated or Drunk Within the Last 30 days?: No Have you Ever Experienced Previous Episodes of Alcohol Withdrawal?: No Have you ever Experienced Withdrawal Seizures?: No Have you ever Experienced Delirium Tremens(DT)s?: No Have you ever undergone Alcohol Rehabilitation Treatment (i.e, inpt ot outpatient treatment programs)?: No Have you ever Experienced Blackouts?: No Have you ever Combined Alcohol with other Downers within the last 90 days?: No Have you ever Combined Alcohol with any other Substance of Abuse during the last 90 days?: No Positive Blood Alcohol level on Presentation? [PCS.BAL]: No Evidence of Increased Autonomic Activity (i.e. HR>120, tremor, sweating, agitation, nausea)?: No Result: 0
[2023-08-29 09:43] LABS: Abs Immature Grans 0.01 10^3/uL (0.0-0.06); Absolute Basophil Count 0.02 10^3/uL (0.0-0.2); Absolute Eosinophil Count 0.03 10^3/uL (0.0-0.7); Absolute Lymphocyte Count 0.48 10^3/uL (1.2-3.4); Absolute Monocyte Count 0.37 10^3/uL (0.1-0.8); Absolute Neutrophil Count 4.34 10^3/uL (1.2-6.7); Basophils % 0.4; Eosinophils % 0.6; HGB 11.9 g/dL (11.2-15.7); Immature Grans % 0.2; Lymphocytes % 9.1; MCHC 32.2 % (32.0-36.0); MCV 90 fL (80-95); MPV 11.4 fL (8.0-11.0); Neutrophils % 82.7; Platelet Count 143 10^3/uL (130-400); RDW 13.9 % (11.7-14.6); RDW-SD 45.8 fL; WBC 5.25 10^3/uL (4.4-10.8)
[2023-08-29 09:58] LABS: ALT 19 U/L (14-59); AST 13 U/L (15-37); Albumin 3.5 g/dL (3.4-5.0); Alkaline Phosphatase 79 U/L (46-116); Anion Gap 8.7 mmol/L (3-11); BUN 16 mg/dL (7-18); Bilirubin, Total 0.7 mg/dL (0.2-1.0); CO2 25.3 mmol/L (21.0-32.0); CREATININE 0.9 mg/dL (0.55-1.02); Calcium 9.1 mg/dL (8.5-10.1); Chloride 103 mmol/L (98-107); Glucose 126 mg/dL (74-106); Lipase 32 U/L (16-77); Potassium 3.6 mmol/L (3.5-5.1); Sodium 137 mmol/L (136-145); Total Protein 6.9 g/dL (6.4-8.2)
--- NOTE | 2023-08-29 10:08 | DI.VRAD_ITS ---
PROCEDURE INFORMATION: Exam: CT Abdomen And Pelvis Without Contrast Exam date and time: 08/29/2023 9:45 AM Age: 68 years old Clinical indication: Other: RT flank pain since yesterday TECHNIQUE: Imaging protocol: Computed tomography of the abdomen and pelvis without contrast. Radiation optimization: All CT scans at this facility use at least one of these dose optimization techniques: automated exposure control; mA and/or kV adjustment per patient size (includes targeted exams where dose is matched to clinical indication); or iterative reconstruction. COMPARISON: CT ABDOMEN PELVIS W 03/28/2023 9:58 AM FINDINGS: Heart: Small right pericardial cyst. Liver: Normal. No mass. Gallbladder and bile ducts: Normal. No calcified stones. No ductal dilation. Pancreas: Normal. No ductal dilation. Spleen: Normal. No splenomegaly. Adrenal glands: Normal. No mass. Kidneys and ureters: Normal. No hydronephrosis. Stomach and bowel: Unremarkable. No obstruction. No mucosal thickening. Appendix: No evidence of appendicitis. Intraperitoneal space: Unremarkable. No free air. No significant fluid collection. Vasculature: Unremarkable. No abdominal aortic aneurysm. Lymph nodes: Unremarkable. No enlarged lymph nodes. Urinary bladder: Unremarkable as visualized. Reproductive: Unremarkable as visualized. Bones/joints: Postop surgical change left hip. Chronic superior endplate compression fracture deformity at T10 through T12 level.. Soft tissues: Unremarkable. IMPRESSION: 1. No CT findings suggestive of obstructive uropathy. 2. The appendix is well-visualized and appears normal. 3. Chronic compression fracture deformity of T10 through T12 levels. Dictated and Authenticated by: Micki Rothman MD. Ordering:FINA Mancini MD
[2023-08-29 11:35] LABS: Bilirubin Negative (Negative); Blood Negative (Negative); Clarity Clear (Clear); Glucose Negative (Negative); Ketones Negative (Negative); Leukocyte Esterase Negative (Negative); Nitrite Negative (Negative); Urobilinogen 0.2 mg/dL (Up to 0.2)
== END 2023-08-29 13:09 | disposition home or self-care (01) ==
PROVIDERS: Emergency Provider Student in an Organized Health Care Education/Training Program; PCP Nurse Practitioner Adult Health
DX: R10.9 Unspecified abdominal pain (principal); R03.0 Elevated blood-pressure reading, without diagnosis of hypertension; M48.54XA Collapsed vertebra, not elsewhere classified, thoracic region, initial encounter for fracture; Z79.82 Long term (current) use of aspirin
CPT/HCPCS: 80053; 83690; 99283; 74176; 81003; 85025

== ENCOUNTER 2023-08-30 14:35 | Outpatient (CLI) | payer MEDICARE, OTHER, SELFPAY ==
--- NOTE | 2023-08-30 11:30 | DI.RAD_ITS ---
Exam(s) XR HIP LT AP LAT ONLY EXAM: XR HIP LT AP LAT ONLY CLINICAL HISTORY: ORIF L hip. TECHNIQUE: 2D digital imaging was performed of the left hip. Views were obtained. AP pelvis and lateral left hip views were obtained. COMPARISON: CR XR HIP LT AP LAT ONLY from 07/16/2023 FINDINGS: BONES: There are stable postsurgical changes of an ORIF of the left femoral neck fracture. There has been no change in alignment of the fracture orthopedic hardware. No new fracture is seen. No bony destructive lesion is seen. JOINTS: No dislocation present. SOFT TISSUE: Normal. IMPRESSION: Stable ORIF of the left proximal femur. DATA REPOSITORY: RADIATION DOSE DELIVERED:
== END 2023-08-30 14:36 | disposition home or self-care (01) ==
LOC: DIORS 14:36
PROVIDERS: PCP Nurse Practitioner Adult Health; Visit Provider Student in an Organized Health Care Education/Training Program
DX: S72.145D Nondisplaced intertrochanteric fracture of left femur, subsequent encounter for closed fracture with routine healing (principal); X58.XXXD Exposure to other specified factors, subsequent encounter
CPT/HCPCS: 99213; 73502

== ENCOUNTER → 2023-09-30 08:48 | Outpatient (BNVA) | payer MEDICARE, OTHER, SELFPAY | PROVIDERS: PCP Nurse Practitioner Adult Health; Referring Provider Nurse Practitioner Adult Health; Visit Provider Nurse Practitioner Gerontology | DX: N39.46 Mixed incontinence (principal); N39.0 Urinary tract infection, site not specified | CPT/HCPCS: 51798; 81003; 99215 ==

== ENCOUNTER 2023-11-01 12:44 | Outpatient (CLI) | payer MEDICARE, OTHER, SELFPAY ==
--- NOTE | 2023-11-01 10:45 | DI.RAD_ITS ---
Exam(s) XR HIP LT AP LAT ONLY EXAM: XR HIP LT AP LAT ONLY CLINICAL HISTORY: follow up rx. TECHNIQUE: 2D digital imaging was performed. Two images were obtained. AP and lateral views were ob tained. COMPARISON: CR XR HIP LT AP LAT ONLY from 08/30/2023 FINDINGS: BONES: There are stable post operative changes present. The fracture line is still visualized. No s uspicious lucencies are seen in or about the orthopedic hardware. No new fracture or dislocation. JOINTS: The joint spaces are well maintained. Stable degenerative changes are seen in the left hip. SOFT TISSUE: Normal. IMPRESSION: Stable postoperative changes. DATA REPOSITORY: RADIATION DOSE DELIVERED:
== END 2023-11-01 12:45 | disposition home or self-care (01) ==
LOC: DIORS 12:44
PROVIDERS: PCP Nurse Practitioner Adult Health; Referring Provider Nurse Practitioner Adult Health; Visit Provider Student in an Organized Health Care Education/Training Program
DX: M76.32 Iliotibial band syndrome, left leg (principal); S72.145D Nondisplaced intertrochanteric fracture of left femur, subsequent encounter for closed fracture with routine healing; X58.XXXD Exposure to other specified factors, subsequent encounter
CPT/HCPCS: 99213; 73502

== ENCOUNTER → 2024-01-06 12:42 | Outpatient (BNVA) | payer MEDICARE, OTHER, SELFPAY | PROVIDERS: PCP Nurse Practitioner Adult Health; Referring Provider Nurse Practitioner Adult Health; Visit Provider Nurse Practitioner Gerontology | DX: N39.46 Mixed incontinence (principal); R35.0 Frequency of micturition | CPT/HCPCS: 51798; 99213 ==

== ENCOUNTER 2024-01-24 14:25 | Outpatient (CLI) | payer MEDICARE, OTHER, SELFPAY ==
--- NOTE | 2024-01-24 10:30 | DI.RAD_ITS ---
Exam(s) XR HIP LT AP LAT ONLY EXAM: XR HIP LT AP LAT ONLY CLINICAL HISTORY: F/U S/P IM NAIL L FEMUR. TECHNIQUE: 2D digital imaging was performed. Two images were obtained. AP and lateral views were ob tained. COMPARISON: CR XR HIP LT AP LAT ONLY from 11/01/2023 FINDINGS: BONES: There are stable post operative changes present. No new fracture or dislocation. There has be en significant interval healing since the prior examination. JOINTS: The joint spaces are well maintained. SOFT TISSUE: Normal. IMPRESSION: Stable postoperative changes. Significant interval healing. DATA REPOSITORY: RADIATION DOSE DELIVERED:
== END 2024-01-24 14:26 | disposition home or self-care (01) ==
LOC: DIORS 01-25 07:50
PROVIDERS: PCP Nurse Practitioner Adult Health; Visit Provider Student in an Organized Health Care Education/Training Program
DX: S72.145D Nondisplaced intertrochanteric fracture of left femur, subsequent encounter for closed fracture with routine healing; X58.XXXD Exposure to other specified factors, subsequent encounter; T84.84XD Pain due to internal orthopedic prosthetic devices, implants and grafts, subsequent encounter
CPT/HCPCS: 99213; 73502

== ENCOUNTER 2024-05-31 11:06 | Day surgery (SDC) | payer MEDICARE, OTHER, SELFPAY ==
[2024-05-31] VITALS (12 sets, daily range): BP systolic 150–168; BP diastolic 57–70; PULSE 49–59; RESP 9–16; TEMP 35.7–36.5; O2SAT 94–99; BMI 30.5
[2024-05-31] MEDS: Celecoxib 200 MG CAP 400 MG PO (11:33)
[2024-05-31] MEDS: Acetaminophen 500 MG TAB 1000 MG PO (11:33)
[2024-05-31] MEDS: Lactated Ringers 1,000 ML 80 ML IV (11:45)
--- NOTE | 2024-05-31 11:50 | W.PREOPHP ---
Assessment and Plan Assessment and plan (1) Painful orthopaedic hardware: Status: Acute Assessment and plan: Mona is a 69-year-old female who is 1 year status post intramedullary fixation of a left hip fracture. Unfortunate, helical blade was prominent and therefore I recommended to be removed. Given that we are 1 year out she is healed the fracture I recommended removing the helical blade and the nail. This would be of very little extra effort to remove the nail after removing the helical blade and then would allow the opportunity for any potential future treatments of the left hip without the added difficulty of removing the nail at that time. I reviewed the treatment options with her to continue to watch this. However, I do worry that leaving this alone will cause worsening arthritis inside the hip with the prominence of the helical blade. I discussed the technical features of the case. I reviewed the risk to include bleeding, infection, pain, stiffness, hardware prominence, refracture, blood clot, worsening arthritis. Despite these risks, she elected to proceed. History of Present Illness History of Present Illness Chief Complaint: Prominent left hip hardware Narrative: Mona is a 69-year-old female who suffered a left hip fracture. She was treated at an outside institution with an intramedullary nail. Unfortunately, there is some prominence of the helical blade which was identified on postoperative x-rays. However, did not progress and she would not heal the fracture. However, given the prominence of the helical blade I did recommend that this be removed to avoid potentially any cartilage issues which may be caused by that blade being prominent. We have previously discussed in the office and have elected to proceed with removal of this hardware. She denies any other changes to her medical history. She denies any current chest pain or shortness of breath. 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 Obesity (Chronic) Nonalcoholic fatty liver disease without nonalcoholic steatohepatitis ([place]) (Acute) Non-celiac gluten sensitivity (Acute) Essential hypertension (Acute) Gastroesophageal reflux disease without esophagitis (Acute 09/20/17) Hyperlipidemia (Acute 11/27/13) Pelvic organ prolapse quantification stage 2 cystocele (Chronic) Pessary trialed in 03/2022 but did not tolerate Prediabetes (Acute) IBS (irritable bowel syndrome) (Chronic ~2016) 06/2021-Improved with gluten-free diet Medical History Anxiety and depression (04/01/16) initial occurrence 2015 relapse 2022-->dietary changes improved mood Shingles outbreak Status post type I or II open fracture of left hip [facility] Note- Nondisplaced intertrochanteric fracture of left femur, initial encounter for closed fracture (~05/09/23) [facility] Abnormal CT scan, pelvis L acetabulum-->fx'ed in April Acute UTI Ductal carcinoma in situ (DCIS) of right breast (~04/22/20) [facility] [place] breast [facility] [place]; left breast phylloides tumor 02/2015 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 Father , 67 Asthma Sister Hyperlipidemia Hypertension Hypothyroid Brother , 60 No problems noted. Son Cancer Brother , 59 Heart disease Asthma Daughter No problems noted. Daughter No problems noted. 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 [employer] Pets and animals: No Sexually active: No Do you think of yourself as: straight/heterosexual Current gender identity: female What is your relationship status?: How often do you talk on the phone with friends or family?: three or more times per week How often do you get together with friends or relatives?: twice per week Do you belong to any clubs or organized social groups?: no Panel score (0-1 are the most socially isolated patients): 2 What type of physical activity do you participate in: walking Duration: < 15 minutes/day Frequency: daily Aruna/Congregational: None Special aruna needs: No Seatbelt use: always Helmet use: No Drive intox 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 Do you feel safe at home: Yes Do you feel safe in your relationship?: Yes Meds Allergies and Home Medications Allergies Allergy/AdvReac Type Severity Reaction Status Date / Time glycerin (From Replens) AdvReac burning & Verified 05/31/24 11:25 rash mineral oil (From Replens) AdvReac Burning & Verified 05/31/24 11:25 Rash polycarbophil (From Replens) AdvReac burning & Verified 05/31/24 11:25 RAsh Home Medications ?Medication ?Instructions ?Recorded ?Confirmed ?Type cholecalciferol (vitamin D3) 25 2,000 unit PO DAILY 01/13/17 05/31/24 History mcg (1,000 unit) capsule tamoxifen 20 mg tablet 20 mg PO DAILY 07/12/20 05/31/24 History peg 400-propylene glycol 0.4 %-0.3 1 drp ophthalmic (eye) BID PRN 06/26/21 05/31/24 History % eye gel drops (Systane Gel) atenolol 25 mg tablet See Rx Instructions .Route 11/29/23 05/31/24 Rx .COMPLEX #90 tabs oxybutynin chloride 5 mg 5 mg PO DAILY #90 tabs 01/06/24 05/31/24 Rx tablet,extended release 24 hr atorvastatin 40 mg tablet See Rx Instructions .Route 05/22/24 05/31/24 Rx .COMPLEX #90 tabs acetaminophen 500 mg tablet 1,000 mg (2 x 500 mg) PO TID #90 05/31/24 Rx tabs ibuprofen 600 mg tablet 600 mg PO TID PRN #90 tabs 05/31/24 Rx oxycodone 5 mg tablet 5 mg PO Q8H PRN pain #10 tabs 05/31/24 Rx Exam Const General: cooperative, healthy appearing, comfortable and no acute distress Resp Effort & Inspection: normal respiratory effort Auscultation: clear to auscultation bilaterally Cardio Rate: regular rate Rhythm: regular rhythm Extrem Other: Left hip incisions are intact without any signs of infection. No significant swelling. No significant pain.
--- NOTE | 2024-05-31 11:56 | ANES.PREOP_ITS ---
General Info Date of Service Date Performed: 05/31/24 Height: 5 ft 4 in Weight: 80.7 kg Body Mass Index (BMI): 30.5 Surgical Procedure: Operation Date: 05/31/24 12:55 Proposed Procedure Side Surgeon p Hip Hardware Removal Left Favio Lopez MD Meds Allergies and Home Medications Allergies Allergy/AdvReac Type Severity Reaction Status Date / Time glycerin (From Replens) AdvReac burning & Verified 05/31/24 11:25 rash mineral oil (From Replens) AdvReac Burning & Verified 05/31/24 11:25 Rash polycarbophil (From Replens) AdvReac burning & Verified 05/31/24 11:25 RAsh Home Medication ?Medication ?Instructions ?Recorded cholecalciferol (vitamin D3) 25 2,000 unit PO DAILY 01/13/17 mcg (1,000 unit) capsule tamoxifen 20 mg tablet 20 mg PO DAILY 07/12/20 peg 400-propylene glycol 0.4 %-0.3 1 drp ophthalmic (eye) BID PRN 06/26/21 % eye gel drops (Systane Gel) atenolol 25 mg tablet See Rx Instructions .Route 11/29/23 .COMPLEX #90 tabs oxybutynin chloride 5 mg 5 mg PO DAILY #90 tabs 01/06/24 tablet,extended release 24 hr atorvastatin 40 mg tablet See Rx Instructions .Route 05/22/24 .COMPLEX #90 tabs acetaminophen 500 mg tablet 1,000 mg (2 x 500 mg) PO TID #90 05/31/24 tabs ibuprofen 600 mg tablet 600 mg PO TID PRN #90 tabs 05/31/24 oxycodone 5 mg tablet 5 mg PO Q8H PRN pain #10 tabs 05/31/24 Current Visit Medications: Current Medications Generic Name Dose Route Start Last Admin Trade Name Freq PRN Reason Stop Dose Admin Acetaminophen 1,000 mg 05/31/24 06:00 05/31/24 11:33 Acetaminophen 500 Mg Tab PO 05/31/24 23:59 1,000 mg PREOP LU Administration Celecoxib 400 mg 05/31/24 06:00 05/31/24 11:33 Celecoxib 200 Mg Cap PO 05/31/24 23:59 400 mg PREOP LU Administration Ringer's Solution 1,000 mls @ 80 mls/hr 05/31/24 06:00 05/31/24 11:45 IV 05/31/24 23:59 80 mls/hr INFUSION LU Administration Tranexamic Acid/Sodium Chloride 1,000 mg in 100 mls @ 600 mls/hr 05/31/24 06:00 IVPB 05/31/24 23:59 PREOP LU Cefazolin Sodium/Dextrose 2 gm in 50 mls @ 100 mls/hr 05/31/24 12:00 Ancef Duplex IVPB 06/30/24 11:05 PREOP LU IV Miscellaneous Supplies 1 each 05/31/24 06:00 Iv Access IV 05/31/24 23:59 DIRECTED LU Sodium Chloride 0 ml 05/31/24 06:00 Normal Saline Flush 10 Ml Syr IV 05/31/24 23:59 PRN PRN Sodium Chloride 0 ml 05/31/24 06:00 Normal Saline 10 Ml Vial IJ 05/31/24 23:59 DIRECTED PRN Sterile Water 0 ml 05/31/24 06:00 Water,Injection,Sterile 10 Ml Vial IJ 05/31/24 23:59 DIRECTED PRN PFSH Active Problems Active Problems: Problem Status Onset Code Acute candidiasis of vulva and vagina Acute B37.31 Painful orthopaedic hardware Acute T84.84XA Iliotibial band syndrome, left leg Acute M76.32 Mixed stress and urge urinary incontinence Acute N39.46 Closed nondisplaced intertrochanteric fracture of left femur Acute 05/08/23 S72.145A Postoperative anemia Resolved D64.9 History of cancer of right breast Acute Z85.3 Obesity Chronic E66.9 Nonalcoholic fatty liver disease without nonalcoholic steatohepatitis ([place]) Acute K76.0 Non-celiac gluten sensitivity Acute K90.41 Essential hypertension Acute I10 Gastroesophageal reflux disease without esophagitis Acute 09/20/17 K21.9 Hyperlipidemia Acute 11/27/13 E78.5 Pelvic organ prolapse quantification stage 2 cystocele Chronic N81.10 Prediabetes Acute R73.03 IBS (irritable bowel syndrome) Chronic ~2017 K58.9 Medical History Medical History Anxiety and depression (04/01/16) initial occurrence 2015 relapse 2022-->dietary changes improved mood Shingles outbreak Status post type I or II open fracture of left hip [facility] Note- Nondisplaced intertrochanteric fracture of left femur, initial encounter for closed fracture (~05/09/23) [facility] Abnormal CT scan, pelvis L acetabulum-->fx'ed in April Acute UTI Ductal carcinoma in situ (DCIS) of right breast (~04/22/20) [facility] [place] Tumor of breast [facility] [place]; left breast phylloides tumor 02/2015 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 Surgical History Surgical History Fracture of left hip requiring operative repair (~05/09/23) Status post abdominal hysterectomy S/P breast lumpectomy (~09/1997) Right, [facility] [place] History of esophagogastroduodenoscopy (EGD) (~05/2021) History of cataract removal with insertion of prosthetic lens b/l w/ lenses Endometrial Ablation EGD - MAC (08/11/17) Dilation and curettage Colonoscopy - MAC (08/11/17) Bilateral salpingectomy with oophorectomy Tobacco Smoking/Tobacco Use Status: Never Passive smoking exposure: Yes Alcohol Alcohol Intake: current Alcohol intake frequency: a few times a month Alcohol type: beer and wine Substance Use Substance use: Never Substance use type: does not use Vital Signs and Lab Results Lab Results Blood Type / Crossmatch: No Data to Display Complete Blood Count: No Data to Display Complete Metabolic Panel: No Data to Display Liver Function Panel: No Data to Display Coagulation Panel: No Data to Display Cardiac Panel: No Data to Display Arterial Blood Gas: No Data to Display Venous Blood Gas: No Data to Display Pancreas Panel: No Data to Display Thyroid Panel: No Data to Display Infectious Disease: No Data to Display Blood Cultures: No Data to Display Toxicology Panel: No Data to Display Anesthesia Assessment and Plan Anesthesia History Personal History: No History of Anesthesia Complications Family History: No Family History of Anesthesia Complications Exercise Tolerance Exercise Tolerance: Metabolic Equivalents>4 Cardiac & Pulmonary Exam Cardiac Exam: Normal S1/S2 Heart Sounds Pulmonary Exam: Clear Bilateral Breath Sounds Implantable Cardiac Device Does patient have a Pacemaker or an ICD?: No Airway Exam Known Difficult Airway: No Mallampati Class: 2 Mouth Opening: Normal (> 3cm) Thyromental Distance: Greater than 3 cm Neck Range of Motion: Full ROM Neck Circumference: Normal Teeth Condition: Normal Dentition and Removable Dentures/Plates Upper ASA Classification ASA Score: ASA 2 Emergency Case?: No NPO Status NPO Status: NPO Clears >2 hours, Solids >8 hours Anesthesia Plan Resuscitation Status: Full Code Anesthesia Technique: General Anesthesia Airway Planned: Endotracheal Tube Monitors Used: Standard Monitors Preoperative Comments:: 69 yo female for hip hardware removal. Sig PMHx: HTN (atenolol), GERD (Nexium), anxiety/depression, never smoker, occ EtOh.
--- NOTE | 2024-05-31 12:04 | W.PM.DSUDISC ---
Date of service: 05/31/24 Time of Service: 12:04 Discharge Plan Disposition Patient Disposition: Home Condition: Good Discharge Details Reason For Visit: Hardware Removal L Hip Attending Provider: Favio Lopez Primary Care Provider: Skye Arriaga Home Meds and New Rx's Prescriptions: New acetaminophen 500 mg tablet 1,000 mg PO TID Qty: 90 3RF ibuprofen 600 mg tablet 600 mg PO TID PRNQty: 90 3RF oxycodone 5 mg tablet 5 mg PO Q8H MDD 15mg PRN (Reason: pain) Qty: 10 0RF Continued tamoxifen 20 mg tablet 20 mg PO DAILY oxybutynin chloride 5 mg tablet extended release 24hr 5 mg PO DAILY Qty: 90 3RF cholecalciferol (vitamin D3) 1,000 UNIT capsule 2,000 unit PO DAILY Systane Gel 0.4-0.3 % drops,gel 1 drp Ophthalmic BID MDD BID PRN Rx Instructions: BOTH EYES atenolol 25 mg tablet See Rx Instructions .ROUTE .COMPLEX Qty: 90 3RF Dose Instruction: TAKE 1 TABLET BY MOUTH DAILY Rx Instructions: TAKE 1 TABLET BY MOUTH DAILY atorvastatin 40 mg tablet See Rx Instructions .ROUTE .COMPLEX Qty: 90 0RF Dose Instruction: TAKE 1 TABLET BY MOUTH EVERY EVENING Rx Instructions: TAKE 1 TABLET BY MOUTH EVERY EVENING Discontinued acetaminophen 500 mg capsule 500 - 1,000 mg PO TID PRN Discharge Instructions Additional Instructions: Hip Hardware Removal Discharge Instructions Activity: You may weight bear as tolerated with an assistive device. You may discontinue the assistive device as tolerated. Dressings: You should keep the initial dressing on for at least 1 week. After 3 days, you may shower however you should cover the dressing to keep it from getting too wet. After 1 week you may get the incision wet after removing the dressing. Medications: - You should take Tylenol and Ibuprofen around the clock for baseline pain. - You have been prescribed a stronger narcotic, Oxycodone, for breakthrough pain. Follow-up: 2 weeks Stand Alone Forms: Anesthesia Discharge Inst., Rosa Elena Ruano ([facility]) Discharge Orders Discharge Orders: Discharge Order (Routine); Ordered 05/31/24 Ordered By: Turner Cristina DS: Diagnosis Discharge Diagnosis (1) Painful orthopaedic hardware: Status: Acute
[2024-05-31] MEDS: ceFAZolin 2 GM/50 ML BAG IVPB (12:52)
[2024-05-31] MEDS: TRANEXAMIC ACID/SOD. CHL. 1,000 MG/100 ML BAG 600 MG IVPB (13:03)
--- NOTE | 2024-05-31 14:35 | DI.RAD_ITS ---
Exam(s) XR HIP LT IN OR EXAM: XR HIP LT IN OR CLINICAL HISTORY: painful hardware left hip. TECHNIQUE: 2D digital imaging was performed. COMPARISON: CR XR HIP LT AP LAT ONLY from 01/24/2024 FINDINGS: Fluoroscopy provided during ORIF left hip orthopedic procedure removal of hardware. See procedure re port for details.. IMPRESSION: Radiation exposure index/cumulative dose: Osk[place]= 47.566 mGy DATA REPOSITORY: RADIATION DOSE DELIVERED:
--- NOTE | 2024-05-31 15:15 | ROE_ITS ---
Date of service: 05/31/24 Time of Service: 12:40 Operative Note Operative Note DATE OF PROCEDURE: 05/31/24 PRE-OP DIAGNOSIS: Painful orthopedic hardware, prominent blade, left hip POST-OP DIAGNOSIS: same PROCEDURE: Removal of intramedullary nail, left femur SURGEON: Favio Lopez LOGISTICS LOSS PREVENTION MANAGER: Turner Cristina ANESTHESIA TYPE: General LMA/ETT Refer to Anesthesia Record ESTIMATED BLOOD LOSS: 50 PATHOLOGY: none sent COMPLICATIONS: None Patient was transported to: PACU Patient's condition: stable Indications: Mona is a 69-year-old female who have seen previously in the clinic for follow- up after an intramedullary nail fixation of a left femur fracture at an outside institution. The helical blade was slightly proud within the femoral head. However, did not advance and therefore we are able to treat fracture with the nail and allow the bone to consolidate about the fracture. However, given the prominence of the blade I recommended proceeding with hardware removal to prevent future degradation of the left hip joint. I discussed the technical details of the surgery. I reviewed the risks such as bleeding, infection, pain, stiffness, refracture, blood clot. Despite these risks, she agreed to proceed. Findings: The intramedullary nail including the blade and the locking screw was removed without significant difficulty. Procedure Description: Mona was greeted in the preoperative holding area. Her identity was confirmed and the correct site was identified and marked. The consent was reviewed the patient and signed. Mona was taken back to the operating room. A general anesthetic was then administered. The feet were wrapped with cast padding and Coban and then placed into the boot liners and then into the boots. Care was taken to protect the skin and make sure the heels were fully down and the boots were stable. The patient was then positioned onto the HANA table. Both legs were held in a neutral position. SCDs were applied. The patient was then slid down onto a perineal post. The arm of the operative side was then placed across the chest and secured. The nonoperative leg was scissored. Prophylactic antibiotics in the form of Cefazolin were administered. 1g of Tranxemic Acid was given intravenously within 30 minutes of incision. The left leg was then prepped with Chloraprep and draped in a standard fashion with shower-curtain type drape with Iodine impregnated skin protection. A timeout to confirm correct identity, side and site, procedure, allergies, anesthesia, and medical concerns was performed. The previous incisions were identified. The proximal incision was incised sharply the skin and some the subcutaneous tissue. I then used the starting wire from the TF and a set to percutaneously go through the hip musculature to identify the starting point of the femoral nail. This was identified with direct palpation and then with the help of fluoroscopy. Once this was discovered the route to the nail was identified through the K wire location and this was incised sharply against the K wire. This opened up the deeper fascia which identified the nail entry. The flexible screwdriver was inserted and the setscrew was backed off. I then incised the lateral incision for helical blade removal. This was once again done through the skin and subcutaneous tissue. The wire from the set was utilized to identify the location of the blade and then the IT band and deeper tissues were incised. The blade extractor was then utilized to remove the helical blade which was done without difficulty. From within the same incision I then identified the distal locking screw. I was able to place the screwdriver into the screw and remove it once again without difficulty. Attention was then turned back to the proximal aspect to remove the nail. Threading the extractor device onto the nail proved quite challenging. A K wire was utilized to identify the correct starting position of this area. Multiple attempts were made to try to get the set screw into the top of the nail for extraction. Some slight mallet blows were utilized to advance the extraction handle into the proximal aspect of the nail which did allow the extractor device to seat more appropriately and then eventually threatened. In between these attempts the soft tissue over the top of the nail was debrided for better visualization and access to the top of the nail. With the extraction device t hreaded and completely the nail was back slapped out without difficulty. Vital x-rays were obtained which did not show any sign of refracture. Hardware was no longer present. The wounds were thoroughly irrigated. A cocktail consisting of 123mg of Ropivacaine, 0.25mg of Epinephrine, 0.04mg of Clonidine, and 15mg of Ketorolac, diluted to 50cc was injected throughout the wounds both deep and superficially. The deep fascia of the proximal two wounds was reapproximated with a 0 Vicryl. The deep tissues were closed with a 2-0 Vicryl and the skin was closed with a running subcuticular Monocryl. The wounds were dressed with a Mepilex silver dressing. At the end of the case, all counts were correct. Mona tolerated the procedure well without known complication and was taken to the PACU for recovery. Physical therapy will start post-operatively, weigh-bearing as tolerated with assistive devices. She will be weightbearing as tolerated with assistive devices. We will use aspirin for postoperative DVT prophylaxis.
--- NOTE | 2024-05-31 15:41 | W.ANESPOSTOP ---
Postoperative Evaluation Date, Time and Location Date Performed: 05/31/24 Time Performed: 15:42 Patient Location: Day Surgery Unit Vital Signs Most Recent Imported Vital Signs: Most Recent Vital Signs Temp Pulse Resp BP Pulse Ox 35.7 C L 56 L 16 166/70 H 96 05/31/24 15:15 05/31/24 15:15 05/31/24 15:15 05/31/24 15:15 05/31/24 15:15 Pain Score Most Recent Pain Score: Most Recent Pain Score Pain Level 3 05/31/24 15:15 Assessment Mental Status: Awake (Alert & Oriented to Patient Baseline) Airway and Respiratory Function: Patent airway with normal (patient baseline) respiratory exam Cardiovascular Function: Hemodynamically Stable Hydration Status: Adequately Hydrated Nausea & Vomiting: No Nausea or Vomiting Pain: Pt. Denies Any Pain Peripheral Nerve Block: Patient did not receive a nerve block
== END 2024-05-31 16:15 | disposition home or self-care (01) ==
PROVIDERS: PCP Nurse Practitioner Adult Health; Visit Provider Student in an Organized Health Care Education/Training Program
PROC: (CPT 20680; principal; 2024-05-31 12:45)
DX: T84.84XA Pain due to internal orthopedic prosthetic devices, implants and grafts, initial encounter (principal); I10 Essential (primary) hypertension; K21.9 Gastro-esophageal reflux disease without esophagitis; E78.5 Hyperlipidemia, unspecified; R73.03 Prediabetes
CPT/HCPCS: 20680; 73501; J0690; J1100; J2001; J2250; J2371; J2405; J2704; J3010

== ENCOUNTER → 2024-06-12 09:57 | Outpatient (BNVA) | payer MEDICARE, OTHER, SELFPAY | PROVIDERS: PCP Nurse Practitioner Adult Health; Referring Provider Nurse Practitioner Adult Health | DX: S72.145D Nondisplaced intertrochanteric fracture of left femur, subsequent encounter for closed fracture with routine healing (principal); T84.84XD Pain due to internal orthopedic prosthetic devices, implants and grafts, subsequent encounter; X58.XXXD Exposure to other specified factors, subsequent encounter ==

== ENCOUNTER 2024-06-27 03:56 | Outpatient (CLI) | payer MEDICARE, OTHER, SELFPAY ==
[2024-06-27 09:02] LABS: HCT 35.9 % (36.0-46.0); HGB 11.7 g/dL (11.2-15.7); MCH 31.1 pg (27.0-33.0); MCHC 32.6 % (32.0-36.0); MCV 96 fL (80-95); MPV 11.4 fL (8.0-11.0); Platelet Count 160 10^3/uL (130-400); RBC 3.76 10^6/uL (3.93-5.22); RDW-SD 44.9 fL; WBC 4.56 10^3/uL (4.4-10.8)
[2024-06-27 09:23] LABS: ALT 18 U/L (14-59); AST 11 U/L (15-37); Albumin 3.2 g/dL (3.4-5.0); Alkaline Phosphatase 87 U/L (46-116); Anion Gap 9.5 mmol/L (3-11); BUN 15 mg/dL (7-18); Bilirubin, Total 0.59 mg/dL (0.2-1.0); CO2 26.5 mmol/L (21.0-32.0); CREATININE 0.9 mg/dL (0.55-1.02); Calcium 8.6 mg/dL (8.5-10.1); Calculated LDL 60 mg/dL (<100); Chloride 109 mmol/L (98-107); Cholesterol 146 mg/dL (<200); Estimated GFR 68.77 (mL/min/1.73m2); Glucose 115 mg/dL (74-106); HDL Cholesterol 54 mg/dL (40-60); Potassium 3.9 mmol/L (3.5-5.1); Sodium 145 mmol/L (136-145); Total Protein 6.5 g/dL (6.4-8.2); Triglyceride 160 mg/dL (<150)
[2024-06-27 09:53] LABS: Hemoglobin A1C 5.6 % (<5.7)
== END 2024-06-27 03:57 | disposition home or self-care (01) ==
LOC: LBO 03:56
PROVIDERS: Absent Provider Nurse Practitioner Adult Health; PCP Nurse Practitioner Adult Health; Referring Provider Nurse Practitioner Adult Health; Visit Provider Nurse Practitioner Adult Health
DX: R73.03 Prediabetes (principal); I10 Essential (primary) hypertension; E78.5 Hyperlipidemia, unspecified; K76.0 Fatty (change of) liver, not elsewhere classified; D64.9 Anemia, unspecified
CPT/HCPCS: 36415; 80053; 80061; 85027; 83036

== ENCOUNTER → 2024-07-05 13:17 | Outpatient (BNVA) | payer MEDICARE, OTHER, SELFPAY | PROVIDERS: PCP Nurse Practitioner Adult Health; Visit Provider Nurse Practitioner Gerontology | DX: N39.46 Mixed incontinence (principal) | CPT/HCPCS: 51798; 99213 ==

== ENCOUNTER → 2024-07-10 09:44 | Outpatient (BNVA) | payer MEDICARE, OTHER, SELFPAY | PROVIDERS: PCP Nurse Practitioner Adult Health; Referring Provider Nurse Practitioner Adult Health; Visit Provider Student in an Organized Health Care Education/Training Program | DX: S72.145D Nondisplaced intertrochanteric fracture of left femur, subsequent encounter for closed fracture with routine healing (principal); X58.XXXD Exposure to other specified factors, subsequent encounter; T84.84XD Pain due to internal orthopedic prosthetic devices, implants and grafts, subsequent encounter ==

== ENCOUNTER 2024-08-04 08:55 | Outpatient (CLI) | payer MEDICARE, OTHER, SELFPAY ==
--- NOTE | 2024-08-04 08:00 | DI.RAD_ITS ---
Exam(s) XR HIP LT COMPLETE AP PELVIS EXAM: XR HIP LT COMPLETE AP PELVIS CLINICAL HISTORY: hip pain,painful orthopedic hardware, [id number]. TECHNIQUE: 2D digital imaging was performed. Three views. COMPARISON: CR XR HIP LT AP LAT ONLY from 01/24/2024 XA XR HIP LT IN OR from 05/31/2024 FINDINGS: BONES: No acute fracture is present. No bony destructive lesion is seen. Lucencies remain visible r elated to removal of previous hardware. Old intertrochanteric fracture has healed without significan t deformity. JOINTS: No dislocation present. The SI joints and pubic symphysis are intact. The hip joint spaces ar e maintained. Bilateral acetabular spurring.. SOFT TISSUE: Normal. IMPRESSION: Status post removal of previously noted hardware in left proximal femur. DATA REPOSITORY: RADIATION DOSE DELIVERED:
== END 2024-08-04 09:15 ==
PROVIDERS: PCP Nurse Practitioner Adult Health; Visit Provider Student in an Organized Health Care Education/Training Program
DX: T84.84XA Pain due to internal orthopedic prosthetic devices, implants and grafts, initial encounter (principal); Z96.642 Presence of left artificial hip joint; M48.07 Spinal stenosis, lumbosacral region
CPT/HCPCS: 72114; 73502

== ENCOUNTER 2024-08-04 10:43 | Outpatient (CLI) | payer MEDICARE, OTHER, SELFPAY ==
--- NOTE | 2024-08-04 09:45 | DI.RAD_ITS ---
Exam(s) XR LUMBAR SPINE COMP W FLEX/EX EXAM: XR LUMBAR SPINE COMP W FLEX/EX CLINICAL HISTORY: back pain,m79.609,m54.9. TECHNIQUE: 2D digital imaging was performed. Five views. COMPARISON: CT CT RENAL COLIC WO from 08/29/2023 FINDINGS: BONES: No acute fracture or destructive lesion. Stable moderate compression fracture of T10. Stable mild compression fractures of T11 and T12. Small endplate osteophytes. Moderate facet hypertrophy identified L4-5 and L5-S1.. DISKS: Intervertebral disc spaces are maintained. ALIGNMENT: Lumbar spinal alignment is within normal limits. SOFT TISSUE: Normal. IMPRESSION: Stable lower thoracic compression fractures. Mild degenerative disc changes. Facet degenerative changes L4-5 L5-S1. DATA REPOSITORY: RADIATION DOSE DELIVERED:
== END 2024-08-04 11:03 ==
LOC: DI 10:44
PROVIDERS: PCP Nurse Practitioner Adult Health; Visit Provider Student in an Organized Health Care Education/Training Program
DX: S72.145D Nondisplaced intertrochanteric fracture of left femur, subsequent encounter for closed fracture with routine healing (principal); X58.XXXD Exposure to other specified factors, subsequent encounter; M51.35 Other intervertebral disc degeneration, thoracolumbar region
CPT/HCPCS: 72114

== ENCOUNTER 2024-11-15 01:42 | Outpatient (RCR) | payer MEDICARE, OTHER, SELFPAY ==
[2024-11-15] MEDS: ZOLEDRONIC ACID/MANNITOL/WATER 5 MG/100 ML BTL 300 MG IVPB (09:59)
[2024-11-15] MEDS: Normal Saline Flush 10 ML SYR IVP (09:59)
== END 2024-11-24 23:59 | disposition home or self-care (01) ==
LOC: INF 01:42
PROVIDERS: PCP Nurse Practitioner Adult Health; Visit Provider Nurse Practitioner Adult Health
DX: M81.0 Age-related osteoporosis without current pathological fracture (principal)
CPT/HCPCS: 96365; J3489

== ENCOUNTER → 2025-01-03 13:07 | Outpatient (BNVA) | payer MEDICARE, OTHER, SELFPAY | PROVIDERS: PCP Nurse Practitioner Adult Health; Referring Provider Nurse Practitioner Adult Health; Visit Provider Nurse Practitioner Gerontology | DX: N39.46 Mixed incontinence (principal) | CPT/HCPCS: 51798; 99213 ==

== ENCOUNTER 2025-04-30 03:40 | Outpatient (CLI) | payer MEDICARE, OTHER, SELFPAY ==
[2025-04-30 09:20] LABS: Hemoglobin A1C 5.6 % (<5.7)
[2025-04-30 09:34] LABS: ALT 25 U/L (14-59); AST 13 U/L (15-37); Albumin 3.3 g/dL (3.4-5.0); Alkaline Phosphatase 61 U/L (46-116); Anion Gap 10.3 mmol/L (3-11); BUN 22 mg/dL (7-18); Bilirubin, Total 0.5 mg/dL (0.2-1.0); CO2 24.7 mmol/L (21.0-32.0); Calcium 8.5 mg/dL (8.5-10.1); Calculated LDL 67 mg/dL (<100); Chloride 105 mmol/L (98-107); Cholesterol 149 mg/dL (<200); Estimated GFR 68.35 (mL/min/1.73m2); Folate 11.1 ng/mL (8.6-20.0); Glucose 109 mg/dL (74-106); HDL Cholesterol 46 mg/dL (>or=50); Magnesium 1.9 mg/dL (1.8-2.4); Potassium 4.3 mmol/L (3.5-5.1); Sodium 140 mmol/L (136-145); TSH (W/Ref FT4) 2.29 uIU/mL (0.36-3.74); Total Protein 6.7 g/dL (6.4-8.2); Triglyceride 182 mg/dL (<150); Vitamin B12 542 pg/mL (193-986)
== END 2025-04-30 03:41 | disposition home or self-care (01) ==
LOC: LBO 03:40
PROVIDERS: Absent Provider Nurse Practitioner Adult Health; PCP Nurse Practitioner Adult Health; Referring Provider Nurse Practitioner Adult Health; Visit Provider Nurse Practitioner Adult Health
DX: R12 Heartburn (principal); E78.2 Mixed hyperlipidemia; R25.2 Cramp and spasm; G62.9 Polyneuropathy, unspecified; I10 Essential (primary) hypertension; R68.89 Other general symptoms and signs; R73.03 Prediabetes
CPT/HCPCS: 36415; 80053; 80061; 82607; 82746; 83036; 83735; 84443

== ENCOUNTER → 2025-08-08 09:23 | Outpatient (BNVA) | payer MEDICARE, OTHER, SELFPAY | PROVIDERS: PCP Nurse Practitioner Adult Health; Referring Provider Nurse Practitioner Adult Health; Visit Provider Nurse Practitioner Gerontology | DX: N39.46 Mixed incontinence (principal); R39.9 Unspecified symptoms and signs involving the genitourinary system | CPT/HCPCS: 99213; 51798 ==